=== PATIENT | male | born 1965 | race African-American/Black ===

== ENCOUNTER 2016-07-07 11:15 | Inpatient (IN) | payer OTHER ==
[2016-07-07] VITALS (10 sets, daily range): BP systolic 138–170; BP diastolic 73–92; PULSE 59–79; RESP 16–20; TEMP 97–98.4; O2SAT 97–100
[~2016-07-07] VITALS: Ht 170.2 cm; Wt 96.3 kg
--- NOTE | 2016-07-07 11:18 | PD ---
HPI Chief Complaint: anemia, GI bleed Time Seen by Provider: 11:18 Travel History International Travel<30 days: No Contact w/Intl Traveler<30days: No Traveled to known affect area: No History of Present Illness HPI 51-year-old male came to the emergency room sent from his primary care from [place] for a hemoglobin of 7. Patient says that he's been feeling weak for past 2 months. He went to get his blood checked today and was told that his hemoglobin was 7 and he needs blood transfusion. Hence he was sent to the emergency room. Patient has history of GI bleed a year ago when he required 6 units of blood transfusion along with iron. He has been taking iron at home. He noticed blood in his stool yesterday. No history of nausea vomiting. No history of abdominal pain. He says his weakness has been progressively worsening. Vital signs were stable. Patient drove himself to the emergency room. He otherwise does not appear to be in any significant distress. Patient says that the [place] I told him that he could come back after the transfusion and they will try to set him up with upper endoscopy and colonoscopy. [facility] Past Medical History Narrative Medical List of his past medical history is reviewed from the nursing note. Hx Anticoagulant Therapy: No Gastrointestinal Disorders: Yes (GI bleed requiring blood transfusion) Social History Tobacco Use: No Allergies-Medications (Allergen,Severity, Reaction): Coded Allergies: No Known Allergies (Unverified , 07/07/16) Comments No known drug allergies. Reported Meds & Prescriptions Reported Meds & Active Scripts Active Reported Iron (Ferrous Fumarate) 18 Mg Tab Mg PO BID Narrative Medication List of his home medications reviewed from the nursing note. Review of Systems Except as stated in HPI: all other systems reviewed are Neg Physical Exam Narrative GENERAL: Awake, alert, no obvious distress SKIN: Warm and dry. Pale HEAD: Atraumatic. Normocephalic. EYES: Pupils equal and round. No scleral icterus. No injection or drainage. Pallor ENT: No nasal bleeding or discharge. Mucous membranes pink and moist. NECK: Trachea midline. No JVD. CARDIOVASCULAR: Regular rate and rhythm. No murmur appreciated. RESPIRATORY: No accessory muscle use. Clear to auscultation. Breath sounds equal bilaterally. GASTROINTESTINAL: Abdomen soft, non-tender, nondistended. Hepatic and splenic margins not palpable. MUSCULOSKELETAL: No obvious deformities. No clubbing. No cyanosis. No edema. NEUROLOGICAL: Awake and alert. No obvious cranial nerve deficits. Motor grossly within normal limits. Normal speech. PSYCHIATRIC: Appropriate mood and affect; insight and judgment normal. Data Data Last Documented VS Vital Signs Date Time Temp Pulse Resp B/P Pulse Ox O2 Delivery O2 Flow Rate FiO2 07/07/16 11:33 98.4 78 20 170/86 98 Room Air Orders Complete Blood Count With Diff (07/07/16 11:31) Comprehensive Metabolic Panel (07/07/16 11:31) Prothrombin Time / Inr (Pt) (07/07/16 11:31) Type And Screen (07/07/16 11:31) Blood Product Administration .UPON TRANSFUSION (07/07/16 11:31) Ecg Monitoring (07/07/16 11:31) Iv Access Insert/Monitor (07/07/16 11:31) Oximetry (07/07/16 11:31) Red Blood Cells (Rbc) (07/07/16 11:31) Blood Product Administration .UPON TRANSFUSION (07/07/16 11:31) Admit Order (Ed Use Only) (07/07/16 12:40) Labs Laboratory Tests Test 07/07/16 11:41 White Blood Count 7.0 TH/MM3 Red Blood Count 2.83 MIL/MM3 Hemoglobin 6.7 GM/DL Hematocrit 20.7 % Mean Corpuscular Volume 73.1 FL Mean Corpuscular Hemoglobin 23.5 PG Mean Corpuscular Hemoglobin 32.1 % Concent Red Cell Distribution Width 23.0 % Platelet Count 330 TH/MM3 Mean Platelet Volume 7.1 FL Neutrophils (%) (Auto) 79.6 % Lymphocytes (%) (Auto) 9.2 % Monocytes (%) (Auto) 9.1 % Eosinophils (%) (Auto) 2.0 % Basophils (%) (Auto) 0.1 % Neutrophils # (Auto) 5.6 TH/MM3 Lymphocytes # (Auto) 0.6 TH/MM3 Monocytes # (Auto) 0.6 TH/MM3 Eosinophils # (Auto) 0.1 TH/MM3 Basophils # (Auto) 0.0 TH/MM3 CBC Comment AUTO DIFF Differential Comment AUTO DIFF CONFIRMED Prothrombin Time 10.7 SEC Prothromb Time International 1.0 RATIO Ratio Sodium Level 141 MEQ/L Potassium Level 4.2 MEQ/L Chloride Level 109 MEQ/L Carbon Dioxide Level 26.6 MEQ/L Anion Gap 5 MEQ/L Blood Urea Nitrogen 14 MG/DL Creatinine 1.04 MG/DL Estimat Glomerular Filtration 91 ML/MIN Rate Random Glucose 82 MG/DL Calcium Level 8.4 MG/DL Total Bilirubin 0.2 MG/DL Aspartate Amino Transf 17 U/L (AST/SGOT) Alanine Aminotransferase 17 U/L (ALT/SGPT) Alkaline Phosphatase 47 U/L Total Protein 7.1 GM/DL Albumin 3.4 GM/DL Blood Type O POSITIVE Antibody Screen NEGATIVE Crossmatch Leukocyte-Reduced Red Blood Cells Blood Bank Comment MDM Medical Decision Making Medical Screen Exam Complete: Yes Emergency Medical Condition: Yes Medical Record Reviewed: Yes Differential Diagnosis symptomatic anemia, upper GI bleed, lower GI bleed Narrative Course 1 PM blood test results are back. Hemoglobin here is 6.7 and hematocrit of 20. The bleeding has stopped further since this morning. I spoke with the patient and explained to him that it would be in his best interest to get admitted so that a repeat blood test can be done after the transfusion to see that his hemoglobin has sufficiently raised. Because if not he might require further transfusion. Also it would not be a bad idea to look into the source of the anemia and possible GI bleed during the admission. Patient is comfortable with that plan. Spoke with the resident for admission. Critical Care Narrative Aggregate critical care time was 30 minutes. Time to perform other separately billable procedures was not included in the critical care time. My time did not include minutes spent treating any other patients simultaneously or on activities that did not directly contribute to the patient's treatment. The services I provided to this patient were to treat and/or prevent clinically significant deterioration that could result in: Symptomatic anemia, blood transfusion, GI bleed by history I provided critical care services requiring my management, as noted below: Chart data review, documentation time, medication orders and management, vital sign assessments/reviewing monitor data, ordering and reviewing lab tests, ordering and interpreting/reviewing x-rays and diagnostic studies, care of the patient and discussion of the patient with the admitting physicians. HemaPrompt Point of Care Internal Pos. & Neg. Controls: Passed Fecal Specimen Occult Blood: Negative Comment There was no stool in the rectal vault Diagnosis Primary Impression: Symptomatic anemia Additional Impression: GI bleed Qualified Code: K92.2 - Gastrointestinal hemorrhage, unspecified gastrointestinal hemorrhage type Admitting Information Admitting Physician Requests: Admit Scripts Pantoprazole (Protonix)40 Mg Tab40 Mg PO DAILY #30 TAB Ref 0 Prov:Mahamed Blanco MD R1 07/08/16 Jeff Sharif MD Jul 07, 2016 11:18
[2016-07-07] MEDS ORDERED: IRON18TA2 PO (11:30)
[2016-07-07 12:09] LABS: AUTOMATED NEUTROPHIL # 5.6 TH/MM3 (1.8-7.7); BASOPHIL % 0.1 % (0.0-2.0); EOSINOPHIL # 0.1 TH/MM3 (0-0.4); LYMPH % 9.2 % (9.0-44.0); LYMPHOCYTE # 0.6 TH/MM3 (1.0-4.8); MEAN CELL VOLUME 73.1 FL (80.0-100.0); MEAN CORPUSCULAR HEMOGLOBIN 23.5 PG (27.0-34.0); MEAN CORPUSCULAR HGB CONC 32.1 % (32.0-36.0); MONO % 9.1 % (0.0-8.0); NEUT % 79.6 % (16.0-70.0); PLATELET COUNT 330 TH/MM3 (150-450); RED BLOOD COUNT 2.83 MIL/MM3 (4.50-5.90)
[2016-07-07 12:15] LABS: PROTHROMBIN TIME - PATIENT 10.7 SEC (9.8-11.6)
[2016-07-07 12:16] LABS: HEMO FLAGS AUTO DIFF
[2016-07-07 12:19] LABS: HEMATOCRIT 20.7 % (39.0-51.0)
[2016-07-07 12:26] LABS: ANION GAP 5 MEQ/L (5-15); AST (GOT) 17 U/L (15-37); BICARBONATE 26.6 MEQ/L (21.0-32.0); BLOOD UREA NITROGEN 14 MG/DL (7-18); CHLORIDE 109 MEQ/L (98-107); GLOMERULAR FILTRATION RATE 91 ML/MIN (>89); POTASSIUM 4.2 MEQ/L (3.5-5.1); SODIUM (NA) 141 MEQ/L (136-145)
[2016-07-07 12:30] LABS: ALKALINE PHOSPHATASE 47 U/L (45-117); ALT (GPT) 17 U/L (12-78); TOTAL BILIRUBIN ADULT 0.2 MG/DL (0.2-1.0)
[2016-07-07 12:47] LABS: SCAN/DIFF AUTO DIFF CONFIRMED
--- NOTE | 2016-07-07 13:19 | HHI.HP ---
[facility] Service Family Medicine Primary Care Physician [facility] Admission Diagnosis Symptomatic anemia, GI bleed Diagnoses: International Travel<30 Days: No Contact w/Intl Traveler<30days: No Known Affected Area: No History of Present Illness Patient is a 51-year-old man with a history of GI bleed a year ago who presents with a hemoglobin of 6.7. Patient was in his normal state of health until about a week ago when he noticed that he was having off and on dark red and bright red stools. Patient went to [facility] for follow-up appointment today. He had routine lab work done last week. He was called back in today because his hemoglobin went from 8 to 7. At the [place], they called evac for transfer to [place] for fluid, blood transfusion. Last year, at [facility], he was noted to have a hemoglobin of 4. He received 6 units of blood and multiple IV iron fusions. He had a colonoscopy at that time, was diagnosed with bleeding polyps, which they said they stopped. He followed up as instructed, and he has been on oral iron pills ever since. Patient endorses dizziness/lightheadedness with standing, dyspnea on exertion, fatigue. Patient denies any shortness of breath at rest, chest pain. Patient does endorse some back pain with concern for urinary tract infection. ( Mahamed Blanco MD R1) Review of Systems Constitutional: COMPLAINS OF: Fatigue (not sleeping well), Dizziness ( lightheaded with standing), Night Sweats, DENIES: Weight loss, Change in appetite Eyes: COMPLAINS OF: Blurred vision, DENIES: Diplopia, Vision loss, Double Vision Ears, nose, mouth, throat: COMPLAINS OF: Running Nose (about a week), DENIES: Throat pain Respiratory: DENIES: Shortness of breath Cardiovascular: COMPLAINS OF: Dyspnea on Exertion, DENIES: Chest pain Gastrointestinal: COMPLAINS OF: Black stools (dark red), Bloody stools (light red), DENIES: Abdominal pain, Constipation, Diarrhea (couple days ago), Nausea , Vomiting, Anorexia Genitourinary: DENIES: Dysuria Musculoskeletal: COMPLAINS OF: Back pain, DENIES: Joint pain, Muscle aches Integumentary: DENIES: Rash Hematologic/lymphatic: DENIES: Bruising Neurologic: DENIES: Headache (yesterday), Localized weakness, Paresthesias ( Mahamed Blanco MD R1) Past Family Social History Past Medical History bleeding polyps last year Past Surgical History 1991 - first colonoscopy for bloody stool [facility]. Reported Medications oral iron pills (Mahamed Blanco MD R1) Allergies: Coded Allergies: No Known Allergies (Unverified , 07/07/16) Family History Patient denies any FH of colon cancer or other cancer. FH of DM in mom, daughter. Patient reports that his dad had h/o GI bleed, of paralysis s/p spinal operation. 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 (Mahamed Blanco MD R1) Physical Exam Vital Signs Vital Signs Date Time Temp Pulse Resp B/P Pulse Ox O2 Delivery O2 Flow Rate FiO2 07/07/16 11:33 98.4 78 20 170/86 98 Room Air 07/07/16 11:19 98.4 79 20 170/86 99 Physical Exam GENERAL: This is a well-nourished, well-developed patient, in no apparent distress. SKIN: Delayed cap refill of 4-5 s. No rashes, ecchymoses or lesions. Cool and dry. HEAD: Atraumatic. Normocephalic. EYES: mild conjunctival pallor. soft tissue bulging in superior-lateral eyes, BL , R>L. Pupils equal round and reactive. Extraocular motions intact. No scleral icterus. No injection or drainage. ENT: Nose without bleeding, purulent drainage. Pale MM. Throat without erythema , tonsillar hypertrophy or exudate. Uvula midline. Airway patent. NECK: Trachea midline. No JVD or lymphadenopathy. Supple, nontender, no meningeal signs. CARDIOVASCULAR: Regular rate and rhythm without murmurs, gallops, or rubs. RESPIRATORY: Clear to auscultation. Breath sounds equal bilaterally. No wheezes , rales, or rhonchi. GASTROINTESTINAL: Abdomen soft, non-tender, nondistended. No guarding. MUSCULOSKELETAL: Extremities without clubbing, cyanosis, or edema. No joint tenderness, effusion, or edema noted. No calf tenderness. NEUROLOGICAL: Awake and alert. Cranial nerves II through XII grossly intact. Motor and sensory grossly within normal limits. Normal speech. Laboratory Laboratory Tests Test 07/07/16 11:41 White Blood Count 7.0 Red Blood Count 2.83 Hemoglobin 6.7 Hematocrit 20.7 Mean Corpuscular Volume 73.1 Mean Corpuscular Hemoglobin 23.5 Mean Corpuscular Hemoglobin 32.1 Concent Red Cell Distribution Width 23.0 Platelet Count 330 Mean Platelet Volume 7.1 Neutrophils (%) (Auto) 79.6 Lymphocytes (%) (Auto) 9.2 Monocytes (%) (Auto) 9.1 Eosinophils (%) (Auto) 2.0 Basophils (%) (Auto) 0.1 Neutrophils # (Auto) 5.6 Lymphocytes # (Auto) 0.6 Monocytes # (Auto) 0.6 Eosinophils # (Auto) 0.1 Basophils # (Auto) 0.0 CBC Comment AUTO DIFF Differential Comment AUTO DIFF CONFIRMED Prothrombin Time 10.7 Prothromb Time International 1.0 Ratio Sodium Level 141 Potassium Level 4.2 Chloride Level 109 Carbon Dioxide Level 26.6 Anion Gap 5 Blood Urea Nitrogen 14 Creatinine 1.04 Estimat Glomerular Filtration 91 Rate Random Glucose 82 Calcium Level 8.4 Total Bilirubin 0.2 Aspartate Amino Transf 17 (AST/SGOT) Alanine Aminotransferase 17 (ALT/SGPT) Alkaline Phosphatase 47 Total Protein 7.1 Albumin 3.4 Blood Type O POSITIVE Antibody Screen NEGATIVE Crossmatch Leukocyte-Reduced Red Blood Cells Blood Bank Comment (Mahamed Blanco MD R1) Result Diagram: 07/07/16 1141 07/07/16 1141 Course In the emergency department, patient had IV placed, type & screen, PT/INR, CMP, CBC, IV placed in preparation for PRBC transfusion. (Mahamed Blanco MD R1) Assessment and Plan Assessment and Plan Patient is a 51-year-old man with a history of GI bleed who presents with a week long history of dark red and bright red blood per rectum, a hemoglobin of 6.7, and signs and symptoms of anemia. Code Status Full code Discussed Condition With Patient seen and discussed with Dr. Candy Marino. Patient discussed with Dr. Zuluaga (Mahamed Blanco MD R1) Attending Attestation THIS CASE WAS DISCUSSED WITH THE RESIDENT PHYSICIANS. I HAVE REVIEWED THE RECORD AND AGREE WITH THE ABOVE NOTE AND PLAN OF CARE WAS DISCUSSED. I HAVE AUTHORIZED THE ORDER FOR ADMISSION TO AN IN-PATIENT STATUS. (Connor Zuluaga MD) Problem List: (1) GI bleed Status: Acute Plan: Patient is a 51-year-old man with a history of GI bleed who presents with a likely GI bleed. Heme occult in the ED negative. GI consult Stool Hemoccult Every 6 hours H&H Protonix 40 mg IV daily Normal saline IV at 125 mL per hour Nothing by mouth in preparation for GI intervention/procedure Monitor intake and output Monitor vital signs Admit to inpatient Type and screen Transfuse 2 units of PRBC --Continue home ferrous fumarate 325mg po bid when not NPO (2) Symptomatic anemia Status: Acute Plan: See assessment and plan above. (3) Contraindication to anticoagulation therapy Status: Acute Plan: Patient with reported history of bleeding per rectum. Anticoagulation contraindicated (4) Lipoma Status: Acute Plan: Patient with likely lipoma in superior lateral thigh bilaterally right greater than left, which is associated with hyperthyroidism TSH (5) Back pain Status: Acute Plan: Patient complaint back pain with concern for UTI. UA (6) Nutrition, metabolism, and development symptoms Status: Acute Plan: Fluids: Normal saline IV at 125 mL per hour Electrolytes: Monitor and replete as necessary Nutrition: Nothing by mouth GI prophylaxis: Protonix 40 mg IV daily (Mahamed Blanco MD R1) Physician Certification 2 Midnight Certification Type: Admission for Inpatient Services Order for Inpatient Services The services are ordered in accordance with Medicare regulations or non- Medicare payer requirements, as applicable. In the case of services not specified as inpatient-only, they are appropriately provided as inpatient services in accordance with the 2-midnight benchmark. Estimated LOS (days): 2 2 days is the estimated time the patient will need to remain in the hospital, assuming treatment plan goals are met and no additional complications. Post-Hospital Plan: Home (Mahamed Blanco MD R1) Problem Qualifiers (1) GI bleed: Qualified Code: K92.2 - Gastrointestinal hemorrhage, unspecified gastrointestinal hemorrhage type Mahamed Blanco MD R1 Jul 07, 2016 13:19 Connor Zuluaga MD Jul 07, 2016 15:23
[2016-07-07] MEDS ORDERED: SODIUM CHLORIDE 0.9% FLUSH 5 ML FLUSH IV PRN (13:30)
[2016-07-07] MEDS ORDERED: ONDANSETRON HCL 4 MG/2 ML VIAL IV PRN (13:30)
[2016-07-07] MEDS: SODIUM CHLOR 0.9% 1000 ML INJ 1,000 ML IV SCH (14:01)
[2016-07-07 14:29] LABS: BLOOD, URINE NEG (NEG); GLUCOSE,URINE NEG (NEG); KETONE, URINE NEG (NEG); MUCUS URINE FEW /lpf (OCC); NITRITE,URINE NEG (NEG); PH, URINE 5.5 (5.0-8.5); URINE COLOR YELLOW (YELLW/STRAW)
[2016-07-07 14:30] LABS: COMMENT (UR) CULT NOT INDICATED; CULTURE IF INDICATED CULT NOT INDICATED
--- NOTE | 2016-07-07 15:22 | HHI.HP ---
[facility] Service Family Medicine Primary Care Physician [facility] Admission Diagnosis Symptomatic anemia, GI bleed Diagnoses: (1) GI bleed (2) Symptomatic anemia (3) Contraindication to anticoagulation therapy (4) Lipoma (5) Back pain (6) Nutrition, metabolism, and development symptoms International Travel<30 Days: No Contact w/Intl Traveler<30days: No Known Affected Area: No History of Present Illness 51-year-old male presenting to the emergency department with anemia found on routine blood work. He states that over the last 2-3 weeks he has noticed several episodes of both black/melanotic stools as well as some bright red blood per rectum with bowel movements. He had blood work done at the [place] and was called and instructed to go to the emergency department for a hemoglobin of 7. Upon arrival to the emergency department his hemoglobin was 6.7. He endorses some orthostatic symptoms such as dizziness/lightheadedness. He does endorse some shortness of breath that is worse with minor activity. He denies symptoms such as chest pain or palpitation. He denies any nausea or vomiting. He denies any hematemesis. He denies anti-inflammatory use set for an occasional Tylenol. One year ago he was hospitalized at [facility] with a hemoglobin of 4. He received 6 units of PRBCs as well as multiple IV infusions. He states that he was worked up with a colonoscopy and EGD at that time and all that was found was some bleeding polyps. He did have follow-up with GI after that hospitalization and was never told of any other abnormalities. He was continued on iron supplementation, which is the only medication that he takes at this point. Review of Systems Constitutional: COMPLAINS OF: Fatigue, DENIES: Fever, Weight loss, Chills, Dizziness Eyes: DENIES: Blurred vision, Double Vision Ears, nose, mouth, throat: DENIES: Vertigo, Throat pain Respiratory: COMPLAINS OF: Shortness of breath, DENIES: Cough, Wheezing, Hemoptysis, Sputum production Cardiovascular: COMPLAINS OF: Dyspnea on Exertion, DENIES: Chest pain, Palpitations, Syncope Gastrointestinal: COMPLAINS OF: Black stools, Bloody stools, DENIES: Abdominal pain, Constipation, Diarrhea, Nausea, Vomiting Musculoskeletal: DENIES: Joint pain Past Family Social History Past Medical History bleeding polyps last year Past Surgical History 1991 - first colonoscopy for bloody stool Last colonoscopy last year at [facility]. Allergies: Coded Allergies: No Known Allergies (Unverified , 07/07/16) Family History Patient denies any FH of colon cancer or other cancer. FH of DM in mom, daughter. Patient reports that his dad had h/o GI bleed, of paralysis s/p spinal operation. 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 Physical Exam Vital Signs Vital Signs Date Time Temp Pulse Resp B/P Pulse Ox O2 Delivery O2 Flow Rate FiO2 07/07/16 14:58 98.3 61 20 158/81 99 Room Air 07/07/16 14:44 98.2 62 20 158/76 99 Room Air 07/07/16 13:00 75 18 155/75 100 Room Air 07/07/16 11:33 98.4 78 20 170/86 98 Room Air 07/07/16 11:19 98.4 79 20 170/86 99 Physical Exam GENERAL: This is a well-nourished, well-developed patient, in no apparent distress. SKIN: Delayed cap refill of 4-5 s. No rashes, ecchymoses or lesions. Cool and dry. EYES: mild conjunctival pallor. soft tissue bulging in superior-lateral eyes, BL , R>L. HENT: Nose without bleeding, purulent drainage. Pale MM. Throat without erythema , tonsillar hypertrophy or exudate. Uvula midline. Airway patent. CARDIOVASCULAR: Regular rate and rhythm with 2/6 systolic murmur. RESPIRATORY: Clear to auscultation. Breath sounds equal bilaterally. No wheezes , rales, or rhonchi. GASTROINTESTINAL: Abdomen soft, non-tender, nondistended. No guarding. MUSCULOSKELETAL: Extremities without clubbing, cyanosis, or edema. NEUROLOGICAL: Awake and alert. Laboratory Laboratory Tests Test 07/07/16 07/07/16 07/07/16 11:41 13:05 14:00 White Blood Count 7.0 Red Blood Count 2.83 Hemoglobin 6.7 Hematocrit 20.7 Mean Corpuscular Volume 73.1 Mean Corpuscular Hemoglobin 23.5 Mean Corpuscular Hemoglobin 32.1 Concent Red Cell Distribution Width 23.0 Platelet Count 330 Mean Platelet Volume 7.1 Neutrophils (%) (Auto) 79.6 Lymphocytes (%) (Auto) 9.2 Monocytes (%) (Auto) 9.1 Eosinophils (%) (Auto) 2.0 Basophils (%) (Auto) 0.1 Neutrophils # (Auto) 5.6 Lymphocytes # (Auto) 0.6 Monocytes # (Auto) 0.6 Eosinophils # (Auto) 0.1 Basophils # (Auto) 0.0 CBC Comment AUTO DIFF Differential Comment AUTO DIFF CONFIRMED Prothrombin Time 10.7 Prothromb Time International 1.0 Ratio Sodium Level 141 Potassium Level 4.2 Chloride Level 109 Carbon Dioxide Level 26.6 Anion Gap 5 Blood Urea Nitrogen 14 Creatinine 1.04 Estimat Glomerular Filtration 91 Rate Random Glucose 82 Calcium Level 8.4 Total Bilirubin 0.2 Aspartate Amino Transf 17 (AST/SGOT) Alanine Aminotransferase 17 (ALT/SGPT) Alkaline Phosphatase 47 Total Protein 7.1 Albumin 3.4 Blood Type O POSITIVE O POSITIVE Antibody Screen NEGATIVE Crossmatch Leukocyte-Reduced Red Blood Cells Blood Bank Comment Urine Color YELLOW Urine Turbidity CLEAR Urine pH 5.5 Urine Specific [place] 1.019 Urine Protein NEG Urine Glucose (UA) NEG Urine Ketones NEG Urine Occult Blood NEG Urine Nitrite NEG Urine Bilirubin NEG Urine Urobilinogen LESS THAN 2.0 Urine Leukocyte Esterase NEG Urine RBC LESS THAN 1 Urine WBC LESS THAN 1 Urine Mucus FEW Microscopic Urinalysis Comment CULT NOT INDICATED Result Diagram: 07/07/16 1141 07/07/16 1141 Assessment and Plan Assessment and Plan 51-year-old male presenting to the emergency department with anemia and a GI bleed Problem List: (1) GI bleed Status: Acute Plan: Melanotic stools with occasional bright red blood per rectum, likely due to lower GI bleed Hemoccult in the emergency department performed and was negative Hemoglobin 6.7 on arrival - 2 units PRBCs ordered, patient was typed and screened Monitor H&H every 6 hours and transfuse as necessary Protonic 40 mg IV to 24 IV fluids with normal saline at 125 mL per hour once transfusion is complete GI consulted for likely panendoscopy Nothing by mouth in preparation for possible procedure Continue home ferrous fumarate 325mg po bid when not NPO (2) Symptomatic anemia Status: Acute Plan: See assessment and plan above. (3) Contraindication to anticoagulation therapy Status: Acute Plan: Patient with reported history of bleeding per rectum. Anticoagulation contraindicated (4) Lipoma Status: Acute Plan: Patient with likely lipoma in superior lateral thigh bilaterally right greater than left, which is associated with hyperthyroidism TSH (5) Back pain Status: Acute Plan: Patient complaint back pain with concern for UTI. UA (6) Nutrition, metabolism, and development symptoms Status: Acute Plan: Fluids: Normal saline IV at 125 mL per hour Electrolytes: Monitor and replete as necessary Nutrition: Nothing by mouth GI prophylaxis: Protonix 40 mg IV daily Physician Certification 2 Midnight Certification Type: Admission for Inpatient Services Order for Inpatient Services The services are ordered in accordance with Medicare regulations or non- Medicare payer requirements, as applicable. In the case of services not specified as inpatient-only, they are appropriately provided as inpatient services in accordance with the 2-midnight benchmark. Estimated LOS (days): 2 2 days is the estimated time the patient will need to remain in the hospital, assuming treatment plan goals are met and no additional complications. Post-Hospital Plan: Home Problem Qualifiers (1) GI bleed: Qualified Code: K92.2 - Gastrointestinal hemorrhage, unspecified gastrointestinal hemorrhage type Connor Zuluaga MD Jul 07, 2016 15:22
--- NOTE | 2016-07-07 16:35 | PD.CONS ---
HPI History of Present Illness This is a 51 year old who was sent to the ER for evaluation of anemia after he was found to have a anemia on his outpatient labs. He has been having intermittent blood in his stool since he required a blood transfusion for GI bleeding last year. He was hospitalized last year for this at [facility] and he was evaluated with EGD/Colonoscopy, and according to the patient, polyps were found. The patient reports that he was told that his bleeding was coming from his polyps. He reports that he has continued to have some blood in his stool. Sometimes his stool is dark and tarry and other times he sees red blood mixed within his stool. There are no aggravating or alleviating factors. He does get heartburn and acid reflux if he eats red sauces but states that he does okay as long as he avoids these. He denies any nausea or vomiting, abdominal pain, or weight loss. He does take ibuprofen as needed, usually a couple a week. He does drink ETOH on weekends, unable to quantify. He denies any family hx of esophageal, gastric, or colorectal cancer. (Pat Reed) PFSH Past Medical History GI Bleeding, pt reports secondary to bleeding polyps Colon polyps Anemia Past Surgical History EGD/Colonoscopy ORIF to left tib/fib, ankle (Pat Reed) Coded Allergies: No Known Allergies (Unverified , 07/07/16) Medications Allergies Coded Allergies Type Severity Reaction Last Updated Verified No Known Allergies 07/07/16 No Active Scripts Medications Dose Route/Sig Days Date Category Iron (Ferrous Fumarate) 18 Mg Tab Mg PO BID 07/07/16 Reported Family History No esophageal, gastric, or colorectal cancer. Social History No tobacco. Social drinker (Pat Reed) Review of Systems Constitutional: COMPLAINS OF: Fatigue, DENIES: Weight loss, Change in appetite Respiratory: COMPLAINS OF: Shortness of breath (prolonged walkign or going up stairs), DENIES: Cough Cardiovascular: DENIES: Chest pain Gastrointestinal: COMPLAINS OF: Black stools, Bloody stools, Heartburn, DENIES : Abdominal pain, Constipation, Diarrhea, Nausea, Vomiting, Swelling of Abdomen , Hematemesis Musculoskeletal: DENIES: Joint pain Integumentary: DENIES: Abnormal pigmentation Hematologic/lymphatic: DENIES: Bruising Neurologic: DENIES: Abnormal gait Psychiatric: DENIES: Confusion (Pat Reed FRANCIS) GI Exam Vitals I&O Vital Signs Date Time Temp Pulse Resp B/P Pulse Ox O2 Delivery O2 Flow Rate FiO2 07/07/16 15:28 98.2 62 20 161/88 98 Room Air 07/07/16 14:58 98.3 61 20 158/81 99 Room Air 07/07/16 14:44 98.2 62 20 158/76 99 Room Air 07/07/16 13:00 75 18 155/75 100 Room Air 07/07/16 11:33 98.4 78 20 170/86 98 Room Air 07/07/16 11:19 98.4 79 20 170/86 99 Laboratory Test 07/07/16 07/07/16 07/07/16 11:41 13:05 14:00 White Blood Count 7.0 TH/MM3 Red Blood Count 2.83 MIL/MM3 Hemoglobin 6.7 GM/DL Hematocrit 20.7 % Mean Corpuscular Volume 73.1 FL Mean Corpuscular Hemoglobin 23.5 PG Mean Corpuscular Hemoglobin 32.1 % Concent Red Cell Distribution Width 23.0 % Platelet Count 330 TH/MM3 Mean Platelet Volume 7.1 FL Neutrophils (%) (Auto) 79.6 % Lymphocytes (%) (Auto) 9.2 % Monocytes (%) (Auto) 9.1 % Eosinophils (%) (Auto) 2.0 % Basophils (%) (Auto) 0.1 % Neutrophils # (Auto) 5.6 TH/MM3 Lymphocytes # (Auto) 0.6 TH/MM3 Monocytes # (Auto) 0.6 TH/MM3 Eosinophils # (Auto) 0.1 TH/MM3 Basophils # (Auto) 0.0 TH/MM3 CBC Comment AUTO DIFF Differential Comment AUTO DIFF CONFIRMED Prothrombin Time 10.7 SEC Prothromb Time International 1.0 RATIO Ratio Sodium Level 141 MEQ/L Potassium Level 4.2 MEQ/L Chloride Level 109 MEQ/L Carbon Dioxide Level 26.6 MEQ/L Anion Gap 5 MEQ/L Blood Urea Nitrogen 14 MG/DL Creatinine 1.04 MG/DL Estimat Glomerular Filtration 91 ML/MIN Rate Random Glucose 82 MG/DL Calcium Level 8.4 MG/DL Total Bilirubin 0.2 MG/DL Aspartate Amino Transf 17 U/L (AST/SGOT) Alanine Aminotransferase 17 U/L (ALT/SGPT) Alkaline Phosphatase 47 U/L Total Protein 7.1 GM/DL Albumin 3.4 GM/DL Blood Type O POSITIVE O POSITIVE Antibody Screen NEGATIVE Crossmatch Leukocyte-Reduced Red Blood Cells Blood Bank Comment Urine Color YELLOW Urine Turbidity CLEAR Urine pH 5.5 Urine Specific [place] 1.019 Urine Protein NEG mg/dL Urine Glucose (UA) NEG mg/dL Urine Ketones NEG mg/dL Urine Occult Blood NEG Urine Nitrite NEG Urine Bilirubin NEG Urine Urobilinogen LESS THAN 2.0 MG/DL Urine Leukocyte Esterase NEG Urine RBC LESS THAN 1 /hpf Urine WBC LESS THAN 1 /hpf Urine Mucus FEW /lpf Microscopic Urinalysis Comment CULT NOT INDICATED Physical Examination HEENT: Normocephalic; atraumatic; no jaundice. Throat is clear. NECK: Neck is supple, no JVD, no lymphadenopathy. CHEST: CTA CARDIAC: RRR ABDOMEN: Soft, nondistended, nontender; no hepatosplenomegaly; bowel sounds are present in all four quadrants. EXTREMITIES: No clubbing, cyanosis, or edema. SKIN: Normal; no rash; no jaundice. FORESTRY FIRE AIDE: No focal deficits; alert and oriented times three. (Pat Reed) Assessment and Plan Plan ASSESSMENT: - GIB with melena and hematochezia. Pt was hospitalized for GI bleeding 1 year ago at [facility] and reports that he was evaluated with EGD/Colonoscopy at that time and told that his bleeding was from his bleeding polyps. He has continued to have intermittent bleeding with both dark stool and red blood in his stool. He recently had labs done as outpatient and was found to be anemic and referred to the ER. He is not having any n/v/pain. He does take ibuprofen a few times a week and drinks ETOH on the weekends. Clear liquids. PPI. Schedule for egd/colonoscopy in am. Will try to obtain records from [facility]. - Anemia secondary to blood loss. H/H 6.7/20.7, Microcytic/hypochromic. #1/2 PRBC given. - GERD. PPI - Hx polyps PLAN: - Plan for egd/colonoscopy in am - Obtain consents - Clear liquids - NPO after MN - PPI - Monitor HH - Transfuse as necessary - Supportive care - Further recommendations to follow based on results of above - PT seen and examined by Dr. Kaplan and myself and this note is written on his behalf (Pat Reed) Physician Comments Seen and examined with Ms. Brianna BLANCO, egd/colonoscopy planned for tomorrow. Monitor H/H. Ko follow. Thank you (Otto Kaplan MD) Pat Reed Jul 07, 2016 16:35 Otto Kaplan MD Jul 07, 2016 18:29
[2016-07-07] MEDS ORDERED: PEG (High)/E-LYTE SOLN 4000 ML BTL PO ONE (17:00)
[2016-07-07] MEDS: SODIUM CHLORIDE 0.9% FLUSH 5 ML FLUSH IV SCH (20:10)
[2016-07-07 21:46] LABS: HEMATOCRIT 30.5 % (39.0-51.0)
[2016-07-07 21:47] LABS: REVIEW FLAG FINAL
[2016-07-08] MEDS: SODIUM CHLOR 0.9% 1000 ML INJ 1,000 ML IV SCH ×3 (00:44→13:25)
[2016-07-08 03:29] LABS: AUTOMATED NEUTROPHIL # 4.9 TH/MM3 (1.8-7.7); BASOPHIL # 0.1 TH/MM3 (0-0.2); BASOPHIL % 0.8 % (0.0-2.0); EOSINOPHIL # 0.1 TH/MM3 (0-0.4); EOSINOPHIL % 2.1 % (0.0-4.0); HEMATOCRIT 26.2 % (39.0-51.0); LYMPH % 9.3 % (9.0-44.0); LYMPHOCYTE # 0.6 TH/MM3 (1.0-4.8); MEAN CELL VOLUME 75.4 FL (80.0-100.0); MEAN CORPUSCULAR HEMOGLOBIN 24.5 PG (27.0-34.0); MEAN CORPUSCULAR HGB CONC 32.5 % (32.0-36.0); MONO % 9.7 % (0.0-8.0); NEUT % 78.1 % (16.0-70.0); PLATELET COUNT 317 TH/MM3 (150-450); RED BLOOD COUNT 3.48 MIL/MM3 (4.50-5.90); RED CELL DISTRIBUTION WIDTH 22.1 % (11.6-17.2); WHITE BLOOD COUNT 6.2 TH/MM3 (4.0-11.0)
[2016-07-08 03:30] LABS: HEMO FLAGS AUTO DIFF
[2016-07-08 03:45] LABS: BICARBONATE 24.5 MEQ/L (21.0-32.0); POTASSIUM 3.9 MEQ/L (3.5-5.1)
[2016-07-08 04:00] VITALS: BP 119/66; PULSE 70; RESP 18; TEMP 97.5; O2SAT 98
[2016-07-08 05:03] LABS: PLATELET ESTIMATE SMEAR NORMAL (NORMAL); PLATELET MORPHOLOGY NORMAL (NORMAL); SCAN/DIFF AUTO DIFF CONFIRMED
[2016-07-08 05:04] LABS: OVALOCYTES 1+ (NORMAL)
[2016-07-08 08:00] VITALS: BP 145/81; PULSE 88; RESP 16; TEMP 98.7; O2SAT 99
[2016-07-08 08:13] LABS: HEMATOCRIT 29.7 % (39.0-51.0)
[2016-07-08 08:21] LABS: REVIEW FLAG FINAL
[2016-07-08] MEDS ORDERED: FERROUS FUMARATE 325 MG TAB (106 MG ELEMENTAL IRON) PO SCH (09:00)
[2016-07-08] MEDS: SODIUM CHLORIDE 0.9% FLUSH 5 ML FLUSH IV SCH (09:00)
[2016-07-08] MEDS ORDERED: PANTOPRAZOLE SODIUM 40 MG VIAL IV SCH (09:00)
--- NOTE | 2016-07-08 10:30 | HHI.FPPN ---
Subjective Remarks No acute events overnight. Vital signs have remained stable. Patient denies any episodes of hematemesis, melena, or hematochezia. He states he has completed his bowl prep and BM's are "clear." He is scheduled to undergo EGD and colonoscopy today at noon. He denies abdominal pain, cramping, chest pain, SOB, fevers, or calf pain. He states he is hungry. (Wilian Meza MD R3) Objective Vitals Vital Signs Date Time Temp Pulse Resp B/P Pulse Ox O2 Delivery O2 Flow Rate FiO2 07/08/16 08:00 98.7 88 16 145/81 99 07/08/16 04:00 97.5 70 18 119/66 98 07/07/16 23:29 97.8 74 16 138/73 98 07/07/16 20:00 97.6 74 18 145/92 100 07/07/16 18:00 97.0 67 18 163/90 97 07/07/16 17:05 98.4 59 20 164/92 99 Room Air 07/07/16 15:28 98.2 62 20 161/88 98 Room Air 07/07/16 14:58 98.3 61 20 158/81 99 Room Air 07/07/16 14:44 98.2 62 20 158/76 99 Room Air 07/07/16 13:00 75 18 155/75 100 Room Air 07/07/16 11:33 98.4 78 20 170/86 98 Room Air 07/07/16 11:19 98.4 79 20 170/86 99 I/O 07/07/16 07/07/16 07/07/16 07/08/16 07/08/16 07/08/16 07:00 15:00 23:00 07:00 15:00 23:00 Intake Total 2600 ml 0 ml Output Total 1200 ml 650 ml Balance 1400 ml -650 ml Intake Oral 2600 ml 0 ml Output Urine Total 1200 ml 650 ml # Bowel Movements 6 1 (Wilian Meza MD R3) Result Diagram: 07/08/16 0745 07/08/16 0312 Objective Remarks GENERAL: This is a well-nourished, well-developed patient, in no apparent distress. SKIN: No rashes, ecchymoses or lesions. Cool and dry. Less pale than prior exam. EYES: clear bilaterally without injection or drainage. EOMI. CARDIOVASCULAR: Regular rate and rhythm with 1/6 systolic murmur. RESPIRATORY: Clear to auscultation. Breath sounds equal bilaterally. No wheezes , rales, or rhonchi. GASTROINTESTINAL: Abdomen soft, non-tender, nondistended. No guarding. MUSCULOSKELETAL: Extremities without clubbing, cyanosis, or edema. NEUROLOGICAL: Awake and alert. (Wilian Meza MD R3) A/P Assessment and Plan 51-year-old male admitted due to symptomatic anemia and suspected GI bleed Discharge Planning Pending GI evaluation and overall stabilization of clinical condition, likely discharge in 1-3 days. (Wilian Meza MD R3) Attending Attestation Patient examined and case discussed with resident physicians I have read the above note and agree with the assessment/plan as discussed with me I was involved in all medical decision making for this patient GI has signed off on patient after colonoscopy/EGD Recommend follow-up with GI as outpatient for small bowel follow-through Continue PPI Connor Zuluaga M.D. (Connor Zuluaga MD) Problem List: (1) GI bleed Status: Acute Plan: Melanotic stools with occasional bright red blood per rectum, likely due to lower GI bleed. Hemoccult in the emergency department performed and was negative. Hemoglobin 6.7 on arrival, now s/p 2 units PRBCs. Hgb this am 9.6. Will proceed with following plan: - GI following, Dr. Chowdhury-- thank you for rec's - Panendoscopy this AM - Continue Protonix 40mg IV daily - Monitor H&H's - Transfuse as necessary - Continue INK BLENDER fumarate 325mg po bid when not NPO (2) Symptomatic anemia Status: Acute Plan: See assessment and plan above. (3) Contraindication to anticoagulation therapy Status: Acute Plan: Patient with reported history of bleeding per rectum. Anticoagulation contraindicated (4) Lipoma Status: Acute Plan: Patient with likely lipoma in superior lateral thigh bilaterally right greater than left, which is associated with hyperthyroidism TSH wnl (5) Back pain Status: Acute Plan: Improved. Patient initially reported back pain with concern for UTI. U/A reassuring (6) Nutrition, metabolism, and development symptoms Status: Acute Plan: Fluids: Normal saline IV at 125 mL per hour Electrolytes: Monitor and replete as necessary Nutrition: Nothing by mouth GI prophylaxis: Protonix as above (Wilian Meza MD R3) Problem Qualifiers (1) GI bleed: Qualified Code: K92.2 - Gastrointestinal hemorrhage, unspecified gastrointestinal hemorrhage type Wilian Meza MD R3 Jul 08, 2016 10:30 Connor Zuluaga MD Jul 08, 2016 15:23
[2016-07-08 12:00] VITALS: BP 149/77; PULSE 70; RESP 16; TEMP 97.9; O2SAT 100
[2016-07-08 12:50] VITALS: BP 149/77; PULSE 70; RESP 15; TEMP 97.9; O2SAT 100
[2016-07-08] MEDS ORDERED: PROPOFOL 200 MG/20 ML AMP IV ONE (14:14)
[2016-07-08 16:00] VITALS: BP 150/91; PULSE 70; RESP 16; TEMP 97.7; O2SAT 100
--- NOTE | 2016-07-08 16:28 | HHI.DCPOC ---
Discharge Care Plan Diagnosis: (1) GI bleed (2) Symptomatic anemia Goals to Promote Your Health * To prevent worsening of your condition and complications, please follow-up with your doctors as instructed and take medications as prescribed. * To maintain your health at the optimal level, please follow-up with GI. Directions to Meet Your Goals Take your medications as prescribed Follow your dietary instruction Follow activity as directed Keep your appointments as scheduled Take your immunizations and boosters as scheduled If your symptoms worsen call your PCP, if no PCP go to Urgent Care Center or Emergency Room Smoking is Dangerous to Your Health. Avoid second hand smoke Call the 24-hour hour crisis hotline for domestic abuse at Mahamed Blanco MD R1 Jul 08, 2016 16:28
[2016-07-08] MEDS ORDERED: PROT40TA PO (17:05)
--- NOTE | 2016-07-09 13:03 | EKG ---
Date Performed: 07/08/2016 Time Performed: 13:37:33 PTAGE: 51 years EKG: SINUS BRADYCARDIA BORDERLINE ECG NO PREVIOUS TRACING DOCTOR: Dariel Rodriguez Interpretating Date/Time 07/09/2016 12:59:14
== END 2016-07-08 18:10 | disposition home or self-care (01) | DRG 379 ==
LOC: NEPE 11:15 → NEDA 12:42 → HOCA 18:00
PROVIDERS: ADMIT Family Medicine; ATTEND Family Medicine
PROC: 30233N1 Transfusion of Nonautologous Red Blood Cells into Peripheral Vein, Percutaneous Approach (ICD-10-PCS; 2016-07-07)
PROC: 0DJ08ZZ Inspection of Upper Intestinal Tract, Via Natural or Artificial Opening Endoscopic (ICD-10-PCS; principal; 2016-07-08 14:00)
PROC: 0DJD8ZZ Inspection of Lower Intestinal Tract, Via Natural or Artificial Opening Endoscopic (ICD-10-PCS; 2016-07-08 14:00)
DX: K92.2 Gastrointestinal hemorrhage, unspecified (principal); D17.9 Benign lipomatous neoplasm, unspecified; D50.0 Iron deficiency anemia secondary to blood loss (chronic); E05.90 Thyrotoxicosis, unspecified without thyrotoxic crisis or storm; M54.9 Dorsalgia, unspecified; Z86.010 Personal history of colon polyps; K29.70 Gastritis, unspecified, without bleeding; K57.30 Diverticulosis of large intestine without perforation or abscess without bleeding; K64.8 Other hemorrhoids; K64.4 Residual hemorrhoidal skin tags; K21.9 Gastro-esophageal reflux disease without esophagitis
CPT/HCPCS: 36430; 80048; 80053; 81001; 84443; 85014; 85018; 85025; 85610; 86850; 86900; 86901; 86920; 93005; 99291; C9113; J7030; P9016

== ENCOUNTER 2016-12-03 16:25 | Inpatient (IN) | payer OTHER ==
[2016-12-03] VITALS (11 sets, daily range): BP systolic 119–154; BP diastolic 64–93; PULSE 57–97; RESP 14–20; TEMP 97.6–98.5; O2SAT 98–100
[~2016-12-03] VITALS: Ht 170.2 cm; Wt 100.8 kg
[~2016-12-03 16:25] MED LIST: IRON18TA2 PO; PROT40TA PO
[2016-12-03] MEDS ORDERED: SODIUM CHLORIDE 0.9% FLUSH 10 ML FLUSH IVF PRN (16:45)
[2016-12-03] MEDS ORDERED: PANTOPRAZOLE SODIUM 40 MG VIAL IVP ONE (16:45)
[2016-12-03 16:46] LABS: MEAN CORPUSCULAR HGB CONC 28.4 % (32.0-36.0)
--- NOTE | 2016-12-03 16:50 | PD ---
HPI Chief Complaint: Abnormal Results Time Seen by Provider: 16:47 Travel History International Travel<30 days: No Contact w/Intl Traveler<30days: No Traveled to known affect area: No History of Present Illness HPI 51 year old male presents to the emergency department for evaluation of low hgb. According to the patient, he was told to come to the ED by the [facility] for Hgb of 5. Patient reports history of anemia in June when he was admitted. He states he had endoscopy and colonoscopy at that time, which did not show anything. Patient reports bright red blood per the rectum intermittently over several months. Patient states his Hgb has been running between 7 and 8. He denies any symptoms. No chest pressures breath. No abdominal pain. No nausea , vomiting, diarrhea. She states that he has not drank alcohol for the past couple of months. He was only drinking on the weekends prior to this. [facility] Past Medical History Hx Anticoagulant Therapy: No Anemia: Yes Diabetes: No Gastrointestinal Disorders: Yes (GI bleed requiring blood transfusion) Psychiatric: Yes (PTSD) Social History Alcohol Use: Yes Tobacco Use: No Substance Use: No Allergies-Medications (Allergen,Severity, Reaction): Coded Allergies: No Known Allergies (Unverified , 07/07/16) Reported Meds & Prescriptions Reported Meds & Active Scripts Active Protonix (Pantoprazole Sodium) 40 Mg Tab 40 Mg PO DAILY Reported Iron (Ferrous Fumarate) 18 Mg Tab Mg PO BID Review of Systems Except as stated in HPI: all other systems reviewed are Neg Physical Exam Narrative GENERAL: Well-nourished, well-developed male patient, afebrile. SKIN: Focused skin assessment warm/dry. HEAD: Normocephalic. Atraumatic. EYES: No scleral icterus. No injection or drainage. NECK: Supple, trachea midline. No JVD or lymphadenopathy. CARDIOVASCULAR: Regular rate and rhythm without murmurs, gallops, or rubs. RESPIRATORY: Breath sounds equal bilaterally. No accessory muscle use. Lungs sounds are clear to auscultation. GASTROINTESTINAL: Abdomen soft, non-tender, nondistended. MUSCULOSKELETAL: No cyanosis, or edema. RECTAL EXAM: No masses or tenderness, stool is brown. Hemoccult is positive. This exam was done with the nurse at bedside. Data Data Last Documented VS Vital Signs Date Time Temp Pulse Resp B/P Pulse Ox O2 Delivery O2 Flow Rate FiO2 12/03/16 16:46 16 100 Room Air 12/03/16 16:37 98.3 84 138/78 Orders Complete Blood Count With Diff (12/03/16 16:45) Comprehensive Metabolic Panel (12/03/16 16:45) Prothrombin Time / Inr (Pt) (12/03/16 16:45) Act Partial Throm Time (Ptt) (12/03/16 16:45) Type And Screen (12/03/16 16:45) Ecg Monitoring (12/03/16 16:45) Iv Access Insert/Monitor (12/03/16 16:45) Oximetry (12/03/16 16:45) Pantoprazole Inj (Protonix Inj) (12/03/16 16:45) Sodium Chloride 0.9% Flush (Ns Flush) (12/03/16 16:45) Red Blood Cells (Rbc) (12/03/16 17:26) Blood Product Administration .UPON TRANSFUSION (12/03/16 17:26) Sodium Chlor 0.9% 250 Ml Inj (Ns 250 Ml (12/03/16 17:30) Labs Laboratory Tests Test 12/03/16 16:53 White Blood Count 6.8 TH/MM3 Red Blood Count 3.17 MIL/MM3 Hemoglobin 5.5 GM/DL Hematocrit 19.3 % Mean Corpuscular Volume 60.7 FL Mean Corpuscular Hemoglobin 17.3 PG Mean Corpuscular Hemoglobin 28.4 % Concent Red Cell Distribution Width 21.1 % Platelet Count 397 TH/MM3 Mean Platelet Volume 7.7 FL Neutrophils (%) (Auto) 75.6 % Lymphocytes (%) (Auto) 12.1 % Monocytes (%) (Auto) 8.5 % Eosinophils (%) (Auto) 2.4 % Basophils (%) (Auto) 1.4 % Neutrophils # (Auto) 5.2 TH/MM3 Lymphocytes # (Auto) 0.8 TH/MM3 Monocytes # (Auto) 0.6 TH/MM3 Eosinophils # (Auto) 0.2 TH/MM3 Basophils # (Auto) 0.1 TH/MM3 CBC Comment DIFF FINAL Differential Comment Prothrombin Time 10.2 SEC Prothromb Time International 0.9 RATIO Ratio Activated Partial 25.6 SEC Thromboplast Time Sodium Level 141 MEQ/L Potassium Level 3.9 MEQ/L Chloride Level 109 MEQ/L Carbon Dioxide Level 26.4 MEQ/L Anion Gap 6 MEQ/L Blood Urea Nitrogen 14 MG/DL Creatinine 1.07 MG/DL Estimat Glomerular Filtration 88 ML/MIN Rate Random Glucose 96 MG/DL Calcium Level 8.5 MG/DL Total Bilirubin 0.3 MG/DL Aspartate Amino Transf 10 U/L (AST/SGOT) Alanine Aminotransferase 16 U/L (ALT/SGPT) Alkaline Phosphatase 49 U/L Total Protein 7.3 GM/DL Albumin 3.4 GM/DL Blood Type O POSITIVE MDM Medical Decision Making Medical Screen Exam Complete: Yes Emergency Medical Condition: Yes Medical Record Reviewed: Yes Differential Diagnosis Anemia versus upper GI bleed versus lower GI bleed Narrative Course 51-year-old male presents to the emergency department for evaluation hemoglobin of 5, sent by the [facility]. Patient is on exam. CBC, CMP, PTT, PTT/INR, type and screen are ordered and pending. Patient is given Protonix 40 mg IV. CBC shows hemoglobin 5.5, hematocrit 19.3. CMP shows no acute abnormality. Coags are unremarkable. 2 units of packed red blood cells are ordered. [facility] is paged for admission. Dr. Paige accepted admission. Diagnosis Primary Impression: GI bleed Qualified Code: K92.2 - Gastrointestinal hemorrhage, unspecified gastrointestinal hemorrhage type Additional Impression: Anemia Qualified Code: D64.9 - Anemia, unspecified type Admitting Information Admitting Physician Requests: Admit Kena Gutiérrez Dec 03, 2016 16:50
[2016-12-03 17:17] LABS: AUTOMATED NEUTROPHIL # 5.2 TH/MM3 (1.8-7.7); BASOPHIL # 0.1 TH/MM3 (0-0.2); BASOPHIL % 1.4 % (0.0-2.0); EOSINOPHIL # 0.2 TH/MM3 (0-0.4); EOSINOPHIL % 2.4 % (0.0-4.0); LYMPH % 12.1 % (9.0-44.0); LYMPHOCYTE # 0.8 TH/MM3 (1.0-4.8); MEAN CELL VOLUME 60.7 FL (80.0-100.0); MEAN CORPUSCULAR HEMOGLOBIN 17.3 PG (27.0-34.0); MONO % 8.5 % (0.0-8.0); NEUT % 75.6 % (16.0-70.0); PLATELET COUNT 397 TH/MM3 (150-450); RED BLOOD COUNT 3.17 MIL/MM3 (4.50-5.90); RED CELL DISTRIBUTION WIDTH 21.1 % (11.6-17.2); WHITE BLOOD COUNT 6.8 TH/MM3 (4.0-11.0)
[2016-12-03 17:25] LABS: HEMO FLAGS DIFF FINAL
[2016-12-03 17:26] LABS: HEMATOCRIT 19.3 % (39.0-51.0)
[2016-12-03 17:30] LABS: ALT (GPT) 16 U/L (12-78); ANION GAP 6 MEQ/L (5-15); APTT (PATIENT) 25.6 SEC (24.3-30.1); AST (GOT) 10 U/L (15-37); BICARBONATE 26.4 MEQ/L (21.0-32.0); BLOOD UREA NITROGEN 14 MG/DL (7-18); CHLORIDE 109 MEQ/L (98-107); GLOMERULAR FILTRATION RATE 88 ML/MIN (>89); INTERNATIONAL NORMALIZED RATIO 0.9 RATIO; POTASSIUM 3.9 MEQ/L (3.5-5.1); PROTHROMBIN TIME - PATIENT 10.2 SEC (9.8-11.6); SODIUM (NA) 141 MEQ/L (136-145)
[2016-12-03] MEDS ORDERED: SODIUM CHLOR 0.9% 250 ML INJ 250 ML IV ONE (17:30)
[2016-12-03 17:32] LABS: ALKALINE PHOSPHATASE 49 U/L (45-117); TOTAL BILIRUBIN ADULT 0.3 MG/DL (0.2-1.0)
--- NOTE | 2016-12-03 18:29 | HHI.HP ---
HPI Service [facility] [address] Hospitalists Primary Care Physician [facility] Admission Diagnosis anemia, GI bleed Diagnoses: Chief Complaint: anemia Travel History International Travel<30 Days: No Contact w/Intl Traveler <30 Da: No Traveled to Known Affected Are: No History of Present Illness 51-year-old male with history of iron deficient anemia requiring transfusions, presents after routine outpatient labs at the OR revealed hemoglobin of 5.2 today. Patient reports he was first diagnosed with anemia two years ago requiring blood transfusion, underwent EGD/colonoscopy that was unremarkable. He then had another hospitalization here at [facility] in June 2016, underwent EGD/colonoscopy that revealed gastritis, diverticulosis, internal and external hemorrhoids. He follows with PCP only at the OR. 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 Today he was sent for routine labs prior to his PCP visit this week which revealed hemoglobin of 5.2. The patient admits that he does have lightheadedness, shortness of breath, dyspnea on exertion for many months now that he feels he has just gotten used to and he does not believe it has changed much over the past few months. Dyspnea is relieved with 5-10minutes of rest. He has noticed over the past week that his legs have been more weak with some tingling in his feet which is new for him. Denies any syncopal episodes. He denies any nausea/vomiting, hematemesis, or abdominal pain. He reports that with almost every bowel movement he notices streaks of bright red blood. He denies any melena. He denies constipation or diarrhea and does not strain with his bowel movements. He is not on any blood thinner. He takes iron supplement twice a day and recently started a multivitamin but denies taking any other medications including NSAIDs. He denies any other medical complaints at this time. Review of Systems Except as stated in HPI: all other systems reviewed are Neg Past Family Social History Past Medical History iron deficient anemia requiring transfusions gastritis internal and external hemorrhoids PTSD Asthma, well controlled Hx of hypertension, on clonidine many years ago, not on any antihypertensives for years Past Surgical History Tibia-fibula fracture with hardware placement and removal Right eye soft tissue mass resection Lumbar spine foreign body/glass removal as a child EGD/colonoscopy Reported Medications Reported Meds & Active Scripts Active Protonix (Pantoprazole Sodium) 40 Mg Tab 40 Mg PO DAILY Reported Iron (Ferrous Fumarate) 18 Mg Tab Mg PO BID Allergies: Coded Allergies: No Known Allergies (Unverified , 07/07/16) Active Ordered Medications Current Medications Medications (Trade) Dose Ordered Sig/Lj Route Start Time Stop Time Status Last Admin Sodium Chloride 2 ml 2 ml UNSCH PRN IVF 12/03/16 16:45 (NS 250 ml Inj) 250 ml @ 15 mls/hr ONCE ONCE IV 12/03/16 17:30 12/04/16 10:09 Family History Mother with diabetes, hypertension Father , unknown causes 1 daughter with diabetes other daughter healthy Social History Denies any tobacco use Previously binged on alcohol on the weekends but now has not drank alcohol in 1 month Denies any illicit drug use 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 SKIN: Warm and dry. No rash. HEAD: Normocephalic. Atraumatic. EYES: Pupils equal and round. No scleral icterus. No injection or drainage. ENT: No nasal bleeding or discharge. Mucous membranes pink and moist. NECK: Supple. Trachea midline. CARDIOVASCULAR: Regular rate and rhythm. S1, S2 noted. No murmur appreciated. RESPIRATORY: No accessory muscle use. Clear to auscultation. Breath sounds equal bilaterally. GASTROINTESTINAL: Abdomen soft, non-tender, nondistended. Normoactive bowel sounds x4. MUSCULOSKELETAL: No obvious deformities. Extremities without clubbing, cyanosis , or edema. NEUROLOGICAL: Awake and alert. No obvious cranial nerve deficits. Motor grossly within normal limits. Normal speech. PSYCHIATRIC: Appropriate mood and affect; insight and judgment normal. Laboratory Laboratory Tests Test 12/03/16 12/03/16 16:53 17:47 White Blood Count 6.8 Red Blood Count 3.17 Hemoglobin 5.5 Hematocrit 19.3 Mean Corpuscular Volume 60.7 Mean Corpuscular Hemoglobin 17.3 Mean Corpuscular Hemoglobin 28.4 Concent Red Cell Distribution Width 21.1 Platelet Count 397 Mean Platelet Volume 7.7 Neutrophils (%) (Auto) 75.6 Lymphocytes (%) (Auto) 12.1 Monocytes (%) (Auto) 8.5 Eosinophils (%) (Auto) 2.4 Basophils (%) (Auto) 1.4 Neutrophils # (Auto) 5.2 Lymphocytes # (Auto) 0.8 Monocytes # (Auto) 0.6 Eosinophils # (Auto) 0.2 Basophils # (Auto) 0.1 CBC Comment DIFF FINAL Differential Comment Prothrombin Time 10.2 Prothromb Time International 0.9 Ratio Activated Partial 25.6 Thromboplast Time Sodium Level 141 Potassium Level 3.9 Chloride Level 109 Carbon Dioxide Level 26.4 Anion Gap 6 Blood Urea Nitrogen 14 Creatinine 1.07 Estimat Glomerular Filtration 88 Rate Random Glucose 96 Calcium Level 8.5 Total Bilirubin 0.3 Aspartate Amino Transf 10 (AST/SGOT) Alanine Aminotransferase 16 (ALT/SGPT) Alkaline Phosphatase 49 Total Protein 7.3 Albumin 3.4 Blood Type O POSITIVE Antibody Screen NEGATIVE Crossmatch Leukocyte-Reduced Red Blood Cells Blood Bank Comment Result Diagram: 12/03/16165212/03/161652 Assessment and Plan Problem List: (1) Anemia ICD Code: D64.9 Status: Acute (2) GI bleed ICD Code: K92.2 Status: Acute Assessment and Plan 51-year-old male with history of iron deficient anemia requiring transfusions, presents after routine outpatient labs at the OR revealed hemoglobin of 5.2 today Acute Symptomatic Blood Loss Anemia with Lower GI Bleeding: with hematochezia. patient reports symptoms of fatigue,SOB/BANEGAS,weakness. Hgb 5.5 upon arrival. Hx of EGD/colonoscopy by Dr. Kaplan showed gastritis, diverticulosis, internal and external hemorrhoids. -2u pRBCs transfusion ordered. -Continue IV Protonix. -Repeat CBC after transfusion. -Consult gastroenterology. Discussed with Dr. Ellsworth, recommends CT abdomen/ pelvis and will evaluate patient in am -Discussed with patient to f/up with hematology as outpatient -Clear liquid diet for now DVT Prophylaxis: teds/scds, avoid chemical prophylaxis with GI bleeding/anemia Discussed Condition With Patient, Dr. Jodee Crowe Physician Certification 2 Midnight Certification Type: Admission for Inpatient Services Order for Inpatient Services The services are ordered in accordance with Medicare regulations or non- Medicare payer requirements, as applicable. In the case of services not specified as inpatient-only, they are appropriately provided as inpatient services in accordance with the 2-midnight benchmark. Estimated LOS (days): 2 days is the estimated time the patient will need to remain in the hospital, assuming treatment plan goals are met and no additional complications. Post-Hospital Plan: Home Collaborating MD Comments The exam, history, and the medical decision-making described in the above note were completed with the assistance of the mid-level provider. I reviewed and agree with the findings presented. I attest that I had a [id number] encounter with the patient on the same day, and personally performed and documented my assessment and findings in the medical record. Patient presented with abnormal hemoglobin. He denies any chest pain, tightness of breathing, lightheadedness dizziness. Patient denies abdominal pain. He stated that he did have bright red blood for about 2 days. He saw his physician and and hemoglobin was obtained and it was abnormal so he was told to go to emergency department. Patient had no other complaints. gen NAD CV RRR. no r/m/g Abd soft NDNT. No hepatosplenomegaly. Negative for any abdominal pain. GI bleed -Most likely lower GI bleed due to diverticulosis.-2u pRBCs transfusion ordered. -We'll start patient on IV Protonix. 2 units of packed red blood cells already order in the ED. Follow with posttransfusion H&H. -Consult GI who recommends CT scan of the abdomen/pelvis and will reevaluate in the a.m. Problem Qualifiers (1) Anemia: Qualified Code: D64.9 - Anemia, unspecified type (2) GI bleed: Qualified Code: K92.2 - Gastrointestinal hemorrhage, unspecified gastrointestinal hemorrhage type Tania Larsen PA-C Dec 03, 2016 18:29 Naomy Paige MD Dec 03, 2016 19:18
[2016-12-03] MEDS ORDERED: BISACODYL 10 MG SUPP RECTAL PRN (18:30)
[2016-12-03] MEDS ORDERED: LACTULOSE SYRUP 20 GM/30 ML CUP PO PRN (18:30)
[2016-12-03] MEDS ORDERED: NALOXONE HCL 0.4 MG/ML AMP IV PRN (18:30)
[2016-12-03] MEDS ORDERED: ACETAMINOPHEN/HYDROcodone 325 MG/5 MG TAB PO PRN (18:30)
[2016-12-03] MEDS ORDERED: SENNOSIDES 8.6 MG TAB PO PRN (18:30)
[2016-12-03] MEDS ORDERED: MAGNESIUM HYDROXIDE SUSP 30 ML CUP PO PRN (18:30)
[2016-12-03] MEDS ORDERED: SODIUM CHLORIDE 0.9% FLUSH 10 ML FLUSH IV FLUSH PRN (18:30)
[2016-12-03] MEDS ORDERED: ACETAMINOPHEN 325 MG TAB PO PRN (18:30)
[2016-12-03] MEDS ORDERED: ONDANSETRON HCL 4 MG/2 ML VIAL IVP PRN (18:30)
[2016-12-03] MEDS: PANTOPRAZOLE SODIUM 40 MG VIAL IV PUSH SCH (18:30)
[2016-12-03] MEDS ORDERED: IOHEXOL 350 MG/ML 10 ML VIAL (for RAD DIAG) IV ONE (19:55)
--- NOTE | 2016-12-03 20:31 | RADRPT ---
EXAM DATE/TIME: 12/03/2016 19:52 [facility] COMPARISON: No previous studies available for comparison. INDICATIONS : Blood in stool. IV CONTRAST: 96 cc Omnipaque 350 (iohexol) IV ORAL CONTRAST: Prescribed oral contrast ingested. RADIATION DOSE: 16.33 CTDIvol (mGy) MEDICAL HISTORY : GI bleed. SURGICAL HISTORY : None. ENCOUNTER: Initial ACUITY: 1 day PAIN SCALE: 0/10 LOCATION: abdomen TECHNIQUE: Volumetric scanning of the abdomen and pelvis was performed. Using automated exposure control and ad justment of the mA and/or kV according to patient size, radiation dose was kept as low as reasonably achievable to obtain optimal diagnostic quality images. DICOM format image data is available electro nically for review and comparison. FINDINGS: LOWER LUNGS: The visualized lower lungs are clear. LIVER: Homogeneous density without lesion. There is no dilation of the biliary tree. No calcified gallston es. SPLEEN: Normal size without lesion. PANCREAS: Within normal limits. KIDNEYS: Normal in size and shape. There is no mass, stone or hydronephrosis. ADRENAL GLANDS: Within normal limits. VASCULAR: There is no aortic aneurysm. BOWEL/MESENTERY: Multiple diverticuli are present greatest in the sigmoid colon. There is no definite wall thickening or inflammatory change. No oral contrast was given limiting the sensitivity. There are several loops of nondilated air-containing small bowel several small air-fluid levels. There is no free air or flui d. ABDOMINAL WALL: Within normal limits. RETROPERITONEUM: There is no lymphadenopathy. BLADDER: No wall thickening or mass. REPRODUCTIVE: Within normal limits. INGUINAL: There is no lymphadenopathy or hernia. MUSCULOSKELETAL: Within normal limits for patient age. CONCLUSION: 1. Mild diverticulosis. 2. Mildly nonspecific, nonobstructive bowel gas pattern which could represent a mild ileus or gastroe nteritis. No oral contrast was given limiting sensitivity. Mahamed Toro MD on December 03, 2016 at 20:28 Board Certified Radiologist. This report was verified electronically.
[2016-12-03] MEDS: SODIUM CHLORIDE 0.9% FLUSH 10 ML FLUSH IV FLUSH SCH (21:00)
[2016-12-03] MEDS: DOCUSATE SODIUM 50 MG/SENNA 8.6 MG TAB PO SCH (21:00)
[2016-12-04] VITALS: BP 135/70; PULSE 71; RESP 18; TEMP 97.4; O2SAT 98
[2016-12-04 04:00] VITALS: BP 134/70; PULSE 73; RESP 18; TEMP 98.1; O2SAT 97
[2016-12-04 08:00] VITALS: BP 134/78; PULSE 62; RESP 20; TEMP 97; O2SAT 98
[2016-12-04 08:10] LABS: AUTOMATED NEUTROPHIL # 4.3 TH/MM3 (1.8-7.7); BASOPHIL # 0.1 TH/MM3 (0-0.2); EOSINOPHIL # 0.2 TH/MM3 (0-0.4); EOSINOPHIL % 2.8 % (0.0-4.0); HEMATOCRIT 23.6 % (39.0-51.0); HEMO FLAGS DIFF FINAL; LYMPH % 11.5 % (9.0-44.0); LYMPHOCYTE # 0.7 TH/MM3 (1.0-4.8); MEAN CELL VOLUME 63.8 FL (80.0-100.0); MEAN CORPUSCULAR HEMOGLOBIN 19.5 PG (27.0-34.0); MEAN CORPUSCULAR HGB CONC 30.5 % (32.0-36.0); MONO % 11.4 % (0.0-8.0); NEUT % 72.3 % (16.0-70.0); PLATELET COUNT 357 TH/MM3 (150-450); RED CELL DISTRIBUTION WIDTH 24.2 % (11.6-17.2); WHITE BLOOD COUNT 5.9 TH/MM3 (4.0-11.0)
[2016-12-04 08:35] LABS: ANION GAP 7 MEQ/L (5-15); AST (GOT) 8 U/L (15-37); BICARBONATE 23.6 MEQ/L (21.0-32.0); BLOOD UREA NITROGEN 13 MG/DL (7-18); CHLORIDE 108 MEQ/L (98-107); GLOMERULAR FILTRATION RATE 94 ML/MIN (>89); SODIUM (NA) 139 MEQ/L (136-145)
[2016-12-04 08:39] LABS: ALKALINE PHOSPHATASE 48 U/L (45-117); ALT (GPT) 12 U/L (12-78); TOTAL BILIRUBIN ADULT 0.4 MG/DL (0.2-1.0)
[2016-12-04] MEDS: SODIUM CHLORIDE 0.9% FLUSH 10 ML FLUSH IV FLUSH SCH ×2 (09:18→20:21)
[2016-12-04] MEDS: DOCUSATE SODIUM 50 MG/SENNA 8.6 MG TAB PO SCH ×2 (09:18→20:21)
--- NOTE | 2016-12-04 09:37 | HHI.PR ---
Subjective Remarks f/u for Gi bleed patient denied any symptoms. denied any active GI bleed. very anxious to eat. Objective Vitals Vital Signs Date Time Temp Pulse Resp B/P Pulse Ox O2 Delivery O2 Flow Rate FiO2 12/04/16 08:00 97.0 62 20 134/78 98 12/04/16 04:00 98.1 73 18 134/70 97 12/04/16 04:00 Room Air 12/04/16 00:00 97.4 71 18 135/70 98 12/04/16 00:00 Room Air 12/03/16 21:05 98.2 88 20 142/76 98 12/03/16 20:30 97.6 73 18 154/86 100 12/03/16 20:00 98.4 66 16 142/93 100 Room Air 12/03/16 20:00 Room Air 12/03/16 19:30 98.3 57 16 133/86 100 Room Air 12/03/16 19:15 98.5 58 16 129/64 100 Room Air 12/03/16 19:05 98.3 67 14 123/66 98 Room Air 12/03/16 19:05 98.3 67 14 123/66 100 Room Air 12/03/16 18:50 98.3 60 16 119/67 100 Room Air 12/03/16 18:50 98.5 80 20 148/68 98 12/03/16 16:46 16 100 Room Air 12/03/16 16:37 98.3 84 16 138/78 100 Room Air 12/03/16 16:27 97.9 97 15 134/86 98 I/O 12/03/16 12/03/16 12/03/16 12/04/16 12/04/16 12/04/16 07:00 15:00 23:00 07:00 15:00 23:00 Intake Total 240 ml 700 ml Balance 240 ml 700 ml Intake Oral 240 ml IV Total 200 ml Packed Cells 500 ml # Voids 1 Result Diagram: 12/04/1671612/04/16716 Objective Remarks GENERAL: in NAD CARDIOVASCULAR: Regular rate and rhythm without murmurs, gallops, or rubs. RESPIRATORY: Breath sounds equal bilaterally. No accessory muscle use. GASTROINTESTINAL: Abdomen soft, non-tender, nondistended. MUSCULOSKELETAL: No cyanosis, or edema. BACK: Nontender without obvious deformity. No CVA tenderness. Medications and IVs Current Medications Pantoprazole Sodium (Protonix Inj) 40 mg ONCE ONCE IVP Last administered on 17:01; Start 12/03/16 at 16:45; Stop 12/03/16 at 16:47; Status DC Sodium Chloride 2 ml 2 ml UNSCH PRN IVF FLUSH AFTER USING IV ACCESS; Start 12/03 at 16:45 Sodium Chloride (NS 250 ml Inj) 250 ml @ 15 mls/hr ONCE ONCE IV Last administered on 12/03/16 19:17; Start 12/03/16 at 17:30; Stop 12/04/16 at 10:09 Sodium Chloride (NS Flush) 2 ml UNSCH PRN IV FLUSH FLUSH AFTER USING IV ACCESS ; Start 12/03/16 at 18:30 Sodium Chloride (NS Flush) 2 ml BID IV FLUSH Last administered on 12/04/16 09: 18; Start 12/03/16 at 21:00 Ondansetron HCl (Zofran Inj) 4 mg Q6H PRN IVP NAUSEA OR VOMITING; Start at 18:30 Acetaminophen (Tylenol) 650 mg Q6H PRN PO headache/fever/pain1-2; Start at 18:30 Acetaminophen/ Hydrocodone Bitart ([place] 5-325 Mg) 1 tab Q6H PRN PO PAIN SCALE 3 TO 10; Start 12/03/16 at 18:30 Naloxone HCl (Narcan Inj) 0.4 mg UNSCH PRN IV SEE LABEL COMMENTS; Start at 18:30 Senna/Docusate Sodium (Arianne-Colace) 1 tab BID PO Last administered on 12/04/16 09:18; Start 12/03/16 at 21:00 Magnesium Hydroxide (Milk Of Magnesia Liq) 30 ml Q12H PRN PO MILD - MODERATE CONSTIPATION; Start 12/03/16 at 18:30 Sennosides (Senokot) 17.2 mg Q12H PRN PO MODERATE - SEVERE CONSTIPATION; Start 12/03/16 at 18:30 Bisacodyl (Dulcolax Supp) 10 mg DAILY PRN RECTAL SEVERE CONSITIPATION; Start at 18:30 Lactulose (Lactulose Liq) 30 ml DAILY PRN PO SEVERE CONSITIPATION; Start at 18:30 Pantoprazole Sodium (Protonix Inj) 40 mg Q24H IV PUSH ; Start 12/03/16 at 18:30 Iohexol (Omnipaque 350 Inj) 96 ml STK-MED ONCE IV Last administered on t 19:55; Start 12/03/16 at 19:55; Stop 12/03/16 at 19:56; Status DC A/P Problem List: (1) Anemia ICD Code: D64.9 Status: Acute (2) GI bleed ICD Code: K92.2 Status: Acute Assessment and Plan 51-year-old male with history of iron deficient anemia requiring transfusions, presents after routine outpatient labs at the [place] revealed hemoglobin of 5.2 today Acute Symptomatic Blood Loss Anemia with Lower GI Bleeding: with hematochezia. patient reports symptoms of fatigue,SOB/BANEGAS,weakness. Hgb 5.5 upon arrival. Hx of EGD/colonoscopy by Dr. Kaplan showed gastritis, diverticulosis, internal and external hemorrhoids. -CT scan showed possible ileus, gastroenteritis, and diverticulosis. -s/p 2u pRBCs with appropriate post transfusion result. no GI bleed at the moment but will repeat H/H at 12. -Continue IV Protonix. -pending GI consult. -NPO at the moment pending recommendations. DVT Prophylaxis: teds/scds, avoid chemical prophylaxis with GI bleeding/anemia Problem Qualifiers (1) Anemia: Qualified Code: D64.9 - Anemia, unspecified type (2) GI bleed: Qualified Code: K92.2 - Gastrointestinal hemorrhage, unspecified gastrointestinal hemorrhage type Naomy Paige MD Dec 04, 2016 09:37
--- NOTE | 2016-12-04 09:51 | PD.CONS ---
HPI History of Present Illness Mr. Hermosillo is a 51 y/o male with microcytic/hypochromic anemia which has required transfusions previously. He routinely gets outpatient labs done at the [facility] and his most recent labs revealed Hgb 5.2 and was sent to the ED for further evaluation. Pt was previously admitted in 06/2016 with anemia and underwent evaluation with EGD/colonoscopy which revealed gastritis, diverticulosis, internal and external hemorrhoids. He has not been seen a software maintenance engineer. He was sent for routine labs prior to his PCP visit this week which revealed hemoglobin of 5.2. Pt has received 2 units of PRBCs following admission. His repeat labs today with Hgb 7.2. The patient admits that he has had lightheadedness, shortness of breath, and dyspnea on exertion for several months which has been unchanged since his previous admission. He has noticed over the past week that his legs have been more weak with some tingling in his feet which is new for him. CT Abd/pelvis (12/04/16) revealed mild diverticulosis, mildly nonspecific, nonobstructive bowel gas pattern which could represent a mild ileus or gastroenteritis but no oral contrast was given limiting sensitivity. He reports that he has been having normal BMs daily with some streaks of bright red blood on the stool. He reports that he notes this is more prominent when he has been drinking. He occasionally gets some nausea and reflux related to eating certain foods, specifically acidic pasta sauces or steak. He denies any abdominal pain, vomiting, constipation, diarrhea, hematemesis, or melena. Denies any rectal pain or pruritus. He states that his stools are occasionally dark from the iron supplements that he takes. He is not on any blood thinner. Denies any NSAID use. He is not on any PPI. He does drink ETOH on weekends, but states that he has not had any alcohol in the last 3 weeks. He denies any family hx of esophageal, gastric, or colorectal cancer. (Cora Gaming) [facility] Past Medical History Microcytic/Hypochromic anemia requiring transfusions Gastritis Internal and external hemorrhoids PTSD Asthma, well controlled Hx of hypertension, on clonidine many years ago, not on any antihypertensives for years Past Surgical History Tibia-fibula fracture with hardware placement and removal Right eye soft tissue mass resection Lumbar spine foreign body/glass removal as a child EGD/colonoscopy (Cora Gaming) Coded Allergies: No Known Allergies (Unverified , 07/07/16) Medications Iron (Ferrous Fumarate) 18 Mg Tab Mg PO BID Family History Denies any family hx of GI related malignancy or IBD Social History Denies any tobacco or illicit drug use Previously binge drinking alcohol on the weekends but has not had any alcohol in the last 3 weeks (Cora Gaming) Review of Systems Constitutional: COMPLAINS OF: Fatigue, DENIES: Fever, Chills Respiratory: COMPLAINS OF: Shortness of breath, DENIES: Hemoptysis Cardiovascular: DENIES: Chest pain, Palpitations Gastrointestinal: COMPLAINS OF: Bloody stools, DENIES: Abdominal pain, Constipation, Diarrhea, Nausea, Vomiting, Odynophagia, Swelling of Abdomen, Heartburn Genitourinary: DENIES: Hematuria Musculoskeletal: DENIES: Stiffness Integumentary: DENIES: Rash Neurologic: DENIES: Headache Psychiatric: DENIES: Confusion (Cora Gaming) GI Exam Vitals I&O Vital Signs Date Time Temp Pulse Resp B/P Pulse Ox O2 Delivery O2 Flow Rate FiO2 12/04/16 04:00 98.1 73 18 134/70 97 12/04/16 04:00 Room Air 12/04/16 00:00 97.4 71 18 135/70 98 12/04/16 00:00 Room Air 12/03/16 21:05 98.2 88 20 142/76 98 12/03/16 20:30 97.6 73 18 154/86 100 12/03/16 20:00 98.4 66 16 142/93 100 Room Air 12/03/16 20:00 Room Air 12/03/16 19:30 98.3 57 16 133/86 100 Room Air 12/03/16 19:15 98.5 58 16 129/64 100 Room Air 12/03/16 19:05 98.3 67 14 123/66 98 Room Air 12/03/16 19:05 98.3 67 14 123/66 100 Room Air 12/03/16 18:50 98.3 60 16 119/67 100 Room Air 12/03/16 18:50 98.5 80 20 148/68 98 12/03/16 16:46 16 100 Room Air 12/03/16 16:37 98.3 84 16 138/78 100 Room Air 12/03/16 16:27 97.9 97 15 134/86 98 I/O 12/03/16 12/03/16 12/03/16 12/04/16 12/04/16 12/04/16 07:00 15:00 23:00 07:00 15:00 23:00 Intake Total 240 ml 700 ml Balance 240 ml 700 ml Intake Oral 240 ml IV Total 200 ml Packed Cells 500 ml # Voids 1 Imaging Last Impressions Abdomen/Pelvis CT 12/03/16 0000 Signed Impressions: Service Date/Time: Saturday, December 03, 2016 19:52 - CONCLUSION: 1. Mild diverticulosis. 2. Mildly nonspecific, nonobstructive bowel gas pattern which could represent a mild ileus or gastroenteritis. No oral contrast was given limiting sensitivity. Mahamed Toro MD Laboratory Test 12/03/16 12/03/16 12/04/16 16:53 17:47 07:17 White Blood Count 6.8 TH/MM3 5.9 TH/MM3 Red Blood Count 3.17 MIL/MM3 3.70 MIL/MM3 Hemoglobin 5.5 GM/DL 7.2 GM/DL Hematocrit 19.3 % 23.6 % Mean Corpuscular Volume 60.7 FL 63.8 FL Mean Corpuscular Hemoglobin 17.3 PG 19.5 PG Mean Corpuscular Hemoglobin 28.4 % 30.5 % Concent Red Cell Distribution Width 21.1 % 24.2 % Platelet Count 397 TH/MM3 357 TH/MM3 Mean Platelet Volume 7.7 FL 8.5 FL Neutrophils (%) (Auto) 75.6 % 72.3 % Lymphocytes (%) (Auto) 12.1 % 11.5 % Monocytes (%) (Auto) 8.5 % 11.4 % Eosinophils (%) (Auto) 2.4 % 2.8 % Basophils (%) (Auto) 1.4 % 2.0 % Neutrophils # (Auto) 5.2 TH/MM3 4.3 TH/MM3 Lymphocytes # (Auto) 0.8 TH/MM3 0.7 TH/MM3 Monocytes # (Auto) 0.6 TH/MM3 0.7 TH/MM3 Eosinophils # (Auto) 0.2 TH/MM3 0.2 TH/MM3 Basophils # (Auto) 0.1 TH/MM3 0.1 TH/MM3 CBC Comment DIFF FINAL DIFF FINAL Differential Comment Prothrombin Time 10.2 SEC Prothromb Time International 0.9 RATIO Ratio Activated Partial 25.6 SEC Thromboplast Time Sodium Level 141 MEQ/L 139 MEQ/L Potassium Level 3.9 MEQ/L 4.0 MEQ/L Chloride Level 109 MEQ/L 108 MEQ/L Carbon Dioxide Level 26.4 MEQ/L 23.6 MEQ/L Anion Gap 6 MEQ/L 7 MEQ/L Blood Urea Nitrogen 14 MG/DL 13 MG/DL Creatinine 1.07 MG/DL 1.01 MG/DL Estimat Glomerular Filtration 88 ML/MIN 94 ML/MIN Rate Random Glucose 96 MG/DL 78 MG/DL Calcium Level 8.5 MG/DL 8.5 MG/DL Total Bilirubin 0.3 MG/DL 0.4 MG/DL Aspartate Amino Transf 10 U/L 8 U/L (AST/SGOT) Alanine Aminotransferase 16 U/L 12 U/L (ALT/SGPT) Alkaline Phosphatase 49 U/L 48 U/L Total Protein 7.3 GM/DL 6.6 GM/DL Albumin 3.4 GM/DL 3.1 GM/DL Blood Type O POSITIVE Antibody Screen NEGATIVE Crossmatch Leukocyte-Reduced Red Blood Cells Blood Bank Comment Physical Examination HEENT: Pupils round and reactive to light; normocephalic; atraumatic; no jaundice. Throat is clear. NECK: Neck is supple, no JVD, no lymphadenopathy. CHEST: CTA CARDIAC: Regular ABDOMEN: +BS, soft, nondistended, nontender. EXTREMITIES: No clubbing, cyanosis, or edema. SKIN: Normal; no rash; no jaundice. HEAD WOOD GRINDER: No focal deficits; alert and oriented times three. (Cora Gaming) Assessment and Plan Plan ASSESSMENT: - Severe symptomatic iron deficiency anemia. Pt was previously admitted in 2016 with anemia and underwent evaluation with EGD/colonoscopy which revealed gastritis, diverticulosis, internal and external hemorrhoids. He has not been seen a software maintenance engineer. He was sent for routine labs prior to his PCP visit this week which revealed hemoglobin of 5.2. Pt has received 2 units of PRBCs and repeat labs today with Hgb 7.2. The patient admits that he has had lightheadedness, SOB and BANEGAS several months. CT Abd/pelvis (12/04/16) ---> mild diverticulosis, mildly nonspecific, nonobstructive bowel gas pattern which could represent a mild ileus or gastroenteritis but no oral contrast was given limiting sensitivity. Pt does not appear to have a symptomatic ileus currently. He is toelrating clear liquids. NO abdominal pain, N/V. He reports that he has been having normal BMs daily with some streaks of bright red blood on the stool. He reports that he notes this is more prominent when he has been drinking. He is not on any blood thinner. Denies any NSAID use. Pt has been using Iron supplements BID at home but iron studies here revealed Serum Fe 24, TIBC 567, %Sat 4.2, Ferritin 2. - Nausea and reflux related to eating certain foods, specifically acidic pasta sauces or steak. He is not on any PPI. He does drink ETOH on weekends, but states that he has not had any alcohol in the last 3 weeks. Protonix 40mg IV daily. - Binge alcohol use. None for the last 3 weeks. PLAN: - Given pts recent evaluation with EGD/colonoscopy in 06/2016 with noted gastritis, diverticulosis and hemorrhoids we will not plan for repeat procedures at this time. - Pt will need outpt evaluation with Capsule Endoscopy to further assess the small bowel. We will obtain and small bowel follow through in preparation for outpt CE. - He should receive some IV iron infusions during this admission. - Pt is currently on clear liquid diet. Will await Dr. Ellsworth's evaluation of the patient today to determine about advancing his diet. - His streaks of blood on the stool is likely related to his hemorrhoids. Pt should use Preparation H, stool softeners and sitzs baths for his hemorrhoids. - His nausea/reflux is likely related to his alcohol use and gastritis. He will need to continue on PPI as an outpt. - Cont. oral iron supplementation with FeSO4 325mg po BID. - Monitor H/H - Transfuse as necessary - Notify GI of any active GIB. - Supportive care - Further recs as the case develops - The pt was seen and examined by myself and Dr. Ellsworth, this note was written on her behalf. (Cora Gaming) Physician Comments seen, examined agree with above small bowel follow-through is negative patient had beed anemic for many years , as per him as far as 1991, had multiple endoscopies and colonoscopies, essentially negative never had capsule endoscopy advance diet iron infusion hematology consult celiac panel, sed rate if hb stable and no active bleeding can be dc home with close fu with [facility] /gi / hematology (Tea Ellsworth MD) Cora Gaming Dec 04, 2016 09:51 Tea Ellsworth MD Dec 04, 2016 14:30
[2016-12-04 10:06] LABS: TRANSFERRIN IRON PROFILE 405 MG/DL (200-360)
[2016-12-04 10:08] LABS: FERRITIN 2 NG/ML (26-388)
[2016-12-04] MEDS ORDERED: PETROLEUM/SHARK LIVER OIL 60 GM TUBE TOPICAL PRN (11:15)
[2016-12-04] MEDS ORDERED: DIATRIZOATE MEGLUM/DIATRIZOATE SOD 120 ML BTL (for RAD DIAG) PO ONE (11:55)
--- NOTE | 2016-12-04 14:26 | RADRPT ---
EXAM DATE/TIME: 12/04/2016 11:50 [place] COMPARISON: No previous studies available for comparison. INDICATIONS : Anemia. FLUORO TIME: 2.7 minutes IMAGE COUNT: 22 CONTRAST: Gastrokatiuska IMAGING TIME(S): 15 min, 30 min, 45 min, 1 hr, 1.5 hrs, 2.5 hrs MEDICAL HISTORY : Gastrointestinal bleed. SURGICAL HISTORY : None. ENCOUNTER: Initial ACUITY: 3 days PAIN SCORE: 6/10 LOCATION: Bilateral abdomen FINDINGS: Preliminary film is unremarkable. The stomach is grossly unremarkable. Examination of the small bowel demonstrates normal mucosal pattern involving the jejunum and ileum. There is no evidence of mass or obstruction. No intraluminal filling defects are identified. Small bowel transit time is normal at 90 minutes. Fluoroscopy of the abdomen and terminal ileum demonstrat es no abnormality. CONCLUSION: Unremarkable small bowel examination. Omar Lehman MD on December 04, 2016 at 14:23 Board Certified Radiologist. This report was verified electronically.
[2016-12-04 16:00] VITALS: BP 130/70; PULSE 70; RESP 20; TEMP 97; O2SAT 100
[2016-12-04 20:00] VITALS: BP 146/65; PULSE 81; RESP 18; TEMP 97.5; O2SAT 98
[2016-12-04] MEDS: PANTOPRAZOLE SODIUM 40 MG VIAL IV PUSH SCH (20:05)
[2016-12-04] MEDS: IRON SUCROSE INJ 200 MG in SODIUM CHLORIDE 0.9% INJ 100 ML IV SCH (20:06)
[2016-12-04 21:11] LABS: MEAN CORPUSCULAR HGB CONC 29.6 % (32.0-36.0)
[2016-12-05] VITALS: BP 132/80; PULSE 66; RESP 16; TEMP 97.8; O2SAT 98
[2016-12-05 04:00] VITALS: BP 135/72; PULSE 67; RESP 16; TEMP 97.9; O2SAT 98
[2016-12-05 07:30] VITALS: BP 154/73; PULSE 62; RESP 20; TEMP 96.8; O2SAT 99
[2016-12-05] MEDS: DOCUSATE SODIUM 50 MG/SENNA 8.6 MG TAB PO SCH (09:00)
[2016-12-05] MEDS: SODIUM CHLORIDE 0.9% FLUSH 10 ML FLUSH IV FLUSH SCH (09:11)
--- NOTE | 2016-12-05 09:31 | MB ---
cc: RIKY LAZAR MD [facility], DATE OF CONSULTATION: 12/05/2016 DATE OF : 1965 REASON FOR CONSULTATION Severe microcytic anemia in a patient with chronic lower GI bleeding. CHIEF COMPLAINT Progressive difficulty breathing with exertion and fatigue. The patient also reports having stools streaked with red blood which have been a chronic issue for the past five or six years. HISTORY OF PRESENT ILLNESS Mr. Hermosillo is a very pleasant 51-year-old male. 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 He presently works for a [employer] in [place]. Mr. Hermosillo reports having had increasing fatigue, difficulty breathing and chronic blood-streaked stools. He reports the bleeding in his stool has been a chronic issue and has been ongoing for the past five or six years. He tells me that there was really no increase in severity of the bleeding over the past few weeks. He reports the bleeding occurs intermittently and can occur at a frequency varying from once a month to once every week. The blood typically coats the outside of the stools. He does have a history of hemorrhoids and underwent a hemorrhoidectomy about five years ago. He also reports undergoing colonoscopies with removal of multiple colon polyps in the past as well. He tells me he underwent blood work late last week as a part of a routine PA follow-up. The hemoglobin came back low and he received a phone call from [facility] early Monday (two days ago). He was instructed to go straight to the emergency department at [facility] which he did. Since his admission he has been transfused two units of packed red blood cells. He also underwent an EGD which indicated no definite evidence of a lesion which may have bled. The hematology service has been asked to see him for further work-up and management of the anemia. Additionally, the patient did undergo serum iron studies which predictably indicated classical findings for iron deficiency with depleted ferritin, low percent iron saturation, low iron level and low TIBC as well. A GI work-up for malabsorption syndrome is also pending. PAST MEDICAL HISTORY 1. Hypertension. 2. Anemia with microcytosis. 3. Cramps. 4. Asthma. 5. Previous history of GI bleeding. PAST SURGICAL HISTORY 1. Colonoscopy. 2. Ankle surgery. 3. Back surgery. 4. Hemorrhoidectomy. FAMILY HISTORY Mom is living. She has diabetes. Father is . He of complications of multiple medical issues including chronic kidney disease. The patient's 25-year-old daughter has a history of diabetes. She was diagnosed when she was about 24. SOCIAL HISTORY The patient reports being a lifelong nonsmoker. He reports drinking maybe 3-4 drinks on Fridays and Saturdays but denies drinking on . He denies ever having been heavy or regular alcohol drinker. He works for a [employer] in [place]. He served in the [employer] between 1987 and 1991. He never served active duty overseas. ALLERGIES No known drug allergies. MEDICATIONS Current inpatient medications: 1. Iron sucrose 200 mg IV q.24h. 2. Hydrocodone/acetominophen, one tablet p.o. q.6h. as needed for pain. 3. Colace/Dulcolax 10 mg per rectal as needed for severe constipation. 4. Lactulose 30 mL p.o. daily. 5. Naloxone 0.4 mg IV as needed. 6. Zofran 4 mg IV q.6h. as needed for nausea and vomiting. 7. Pantoprazole 40 mg IV once daily. 8. Senokot 17.2 mg p.o. q.12h. REVIEW OF SYSTEMS CONSTITUTIONAL: The patient reports fatigue and breathlessness with exertion. Denies fevers, chills or night sweats. HEENT: Denies headaches, blurry vision, difficulty swallowing or soreness in the throat. RESPIRATORY: Denies cough, hemoptysis, pleuritic chest pain. He reports exertional dyspnea. CARDIOVASCULAR: Denies angina-like chest pain, PND, orthopnea. Denies lower extremity swelling. GASTROINTESTINAL: Reports noting hematochezia. Denies abdominal pain, nausea, vomiting, diarrhea, hematemesis, abdominal distention or jaundice. GENITOURINARY: No complaints. CANE LOADER: Denies any focal sensory or motor deficits. LABORATORY FINDINGS: Blood work dated 12/04/2016: WBC count 5.9, hemoglobin 7.9 gm/dl, hematocrit 23.6%, MCV 63.8. ESR is elevated at 45. Sodium 139, potassium 4, chloride 108, bicarb 23.6, BUN 7, creatinine 1, random glucose 78, calcium 8.5. Iron 24, TIBC 567, percent iron saturation 4.2, ferritin level 2. Total bilirubin 0.4, AST 8, ALT 12, alkaline phosphatase 48, albumin 3.1. ASSESSMENT Mr. Hermosillo is a very pleasant 51-year-old man with a history of chronic lower GI bleeding which he describes as "red blood streaking the outside of his stool close." He reports this has been an active and ongoing issue for the past five or six years. Some years ago he underwent hemorrhoidectomy which failed to control this. He has also been noted to have multiple polyps in the colon which have previously been removed during colonoscopy. This is his third or fourth hospitalization for symptomatic iron deficiency. So far this admission he has received two units of packed red blood cells, one dose of iron sucrose 200 mg, and has undergone a colonoscopy. His serum iron studies are consistent with iron deficiency. This would most likely be the underlying cause for his microcytic anemia. RECOMMENDATIONS 1. Iron deficiency anemia with resultant microcytosis and symptoms of fatigue, weakness and breathlessness with exertion. It is apparent based on his history and his chronic symptoms of blood in the stool that the iron deficiency is secondary to GI bleeding. He will require GI work-up as an outpatient with I believe repeat colonoscopy. 2. I would dose him again today with iron sucrose 200 mg IV and then he may be discharged home. I would like to see him in follow-up in my office in [facility] in the upcoming weeks to evaluate his hemoglobin and hematocrit. In the upcoming three or four months I would also like to obtain a hemoglobin electrophoresis to rule out an underlying hemoglobinopathy which may be contributing to the microcytosis as well. It would not be helpful to obtain this study at this point since he has already had a red cell transfusion earlier this hospitalization. I would also recommend he be discharged on oral iron replacement therapy with ferrous sulfate. MD LILLI Morton/MIKAYLA /8:49 AM /9:12 AM
[2016-12-05] MEDS: IRON SUCROSE INJ 200 MG in SODIUM CHLORIDE 0.9% INJ 100 ML IV SCH (10:12)
[2016-12-05 10:23] LABS: AUTOMATED NEUTROPHIL # 5.1 TH/MM3 (1.8-7.7); BASOPHIL # 0.1 TH/MM3 (0-0.2); BASOPHIL % 1.1 % (0.0-2.0); EOSINOPHIL # 0.1 TH/MM3 (0-0.4); EOSINOPHIL % 2.3 % (0.0-4.0); HEMATOCRIT 25.8 % (39.0-51.0); HEMO FLAGS DIFF FINAL; LYMPH % 11.8 % (9.0-44.0); LYMPHOCYTE # 0.8 TH/MM3 (1.0-4.8); MEAN CELL VOLUME 64.9 FL (80.0-100.0); MEAN CORPUSCULAR HEMOGLOBIN 19.2 PG (27.0-34.0); MONO % 7.3 % (0.0-8.0); NEUT % 77.5 % (16.0-70.0); PLATELET COUNT 392 TH/MM3 (150-450); RED BLOOD COUNT 3.97 MIL/MM3 (4.50-5.90); RED CELL DISTRIBUTION WIDTH 24.2 % (11.6-17.2); WHITE BLOOD COUNT 6.5 TH/MM3 (4.0-11.0)
[2016-12-05 11:30] VITALS: BP 151/70; PULSE 67; RESP 20; TEMP 97.3; O2SAT 98
[2016-12-05] MEDS ORDERED: FERR324T4 PO (11:37)
--- NOTE | 2016-12-05 11:38 | HHI.DCPOC ---
Discharge Care Plan Diagnosis: (1) Anemia (2) GI bleed Goals to Promote Your Health * To prevent worsening of your condition and complications * To maintain your health at the optimal level Directions to Meet Your Goals Take your medications as prescribed Follow your dietary instruction Follow activity as directed Keep your appointments as scheduled Take your immunizations and boosters as scheduled If your symptoms worsen call your PCP, if no PCP go to Urgent Care Center or Emergency Room Smoking is Dangerous to Your Health. Avoid second hand smoke Call the 24-hour hour crisis hotline for domestic abuse at Naomy Paige MD Dec 05, 2016 11:38
--- NOTE | 2016-12-05 11:39 | HHI.DS ---
Discharge Summary Admission Date Dec 03, 2016 at 17:45 Discharge Date: Dec 05, 2016 Admitting Diagnosis anemia, GI bleed (1) Anemia ICD Code: D64.9 Diagnosis: Principal (2) GI bleed ICD Code: K92.2 Diagnosis: Principal Procedures none Brief History - From Admission 51-year-old male with history of iron deficient anemia requiring transfusions, presents after routine outpatient labs at the [facility] revealed hemoglobin of 5.2 today. Patient reports he was first diagnosed with anemia two years ago requiring blood transfusion, underwent EGD/colonoscopy that was unremarkable. He then had another hospitalization here at [facility] in June 2016, underwent EGD/colonoscopy that revealed gastritis, diverticulosis, internal and external hemorrhoids. He follows with PCP only at the [facility]. He has never seen a director corporate. Today he was sent for routine labs prior to his PCP visit this week which revealed hemoglobin of 5.2. The patient admits that he does have lightheadedness, shortness of breath, dyspnea on exertion for many months now that he feels he has just gotten used to and he does not believe it has changed much over the past few months. Dyspnea is relieved with 5-10minutes of rest. He has noticed over the past week that his legs have been more weak with some tingling in his feet which is new for him. Denies any syncopal episodes. He denies any nausea/vomiting, hematemesis, or abdominal pain. He reports that with almost every bowel movement he notices streaks of bright red blood. He denies any melena. He denies constipation or diarrhea and does not strain with his bowel movements. He is not on any blood thinner. He takes iron supplement twice a day and recently started a multivitamin but denies taking any other medications including NSAIDs. He denies any other medical complaints at this time. CBC/BMP: 12/05/16 0921 12/04/16 0717 Significant Findings Laboratory Tests Test 12/03/16 12/04/16 12/04/16 12/05/16 16:53 07:17 17:55 09:21 Red Blood Count 3.17 MIL/MM3 3.70 MIL/MM3 3.97 MIL/MM3 (4.50-5.90) (4.50-5.90) (4.50-5.90) Hemoglobin 5.5 GM/DL 7.2 GM/DL 7.9 GM/DL 7.6 GM/DL (13.0-17.0) (13.0-17.0) (13.0-17.0) (13.0-17.0) Hematocrit 19.3 % 23.6 % 25.8 % (39.0-51.0) (39.0-51.0) (39.0-51.0) Mean Corpuscular Volume 60.7 FL 63.8 FL 64.9 FL (80.0-100.0) (80.0-100.0) (80.0-100.0) Mean Corpuscular Hemoglobin 17.3 PG 19.5 PG 19.2 PG (27.0-34.0) (27.0-34.0) (27.0-34.0) Mean Corpuscular Hemoglobin 28.4 % 30.5 % 29.6 % Concent (32.0-36.0) (32.0-36.0) (32.0-36.0) Red Cell Distribution Width 21.1 % 24.2 % 24.2 % (11.6-17.2) (11.6-17.2) (11.6-17.2) Neutrophils (%) (Auto) 75.6 % 72.3 % 77.5 % (16.0-70.0) (16.0-70.0) (16.0-70.0) Monocytes (%) (Auto) 8.5 % (0.0-8.0) 11.4 % (0.0-8.0) Lymphocytes # (Auto) 0.8 TH/MM3 0.7 TH/MM3 0.8 TH/MM3 (1.0-4.8) (1.0-4.8) (1.0-4.8) Chloride Level 109 MEQ/L 108 MEQ/L (98-107) (98-107) Estimat Glomerular Filtration 88 ML/MIN (>89) Rate Aspartate Amino Transf 10 U/L (15-37) 8 U/L (15-37) (AST/SGOT) Iron Level 24 MCG/DL (65-175) Total Iron Binding Capacity 567 MCG/DL (250-450) Percent Iron Saturation 4.2 % (20-50) Ferritin 2 NG/ML (26-388) Albumin 3.1 GM/DL (3.4-5.0) Erythrocyte Sedimentation Rate 45 mm/hr (0-20) Imaging Last Impressions Small Bowel X-Ray 12/04/16 0000 Signed Impressions: Service Date/Time: Sunday, December 04, 2016 11:50 - CONCLUSION: Unremarkable small bowel examination. Omar Lehman MD Abdomen/Pelvis CT 12/03/16 0000 Signed Impressions: Service Date/Time: Saturday, December 03, 2016 19:52 - CONCLUSION: 1. Mild diverticulosis. 2. Mildly nonspecific, nonobstructive bowel gas pattern which could represent a mild ileus or gastroenteritis. No oral contrast was given limiting sensitivity. Mahamed Toro MD PE at Discharge GENERAL: in NAD CARDIOVASCULAR: Regular rate and rhythm without murmurs, gallops, or rubs. RESPIRATORY: Breath sounds equal bilaterally. No accessory muscle use. GASTROINTESTINAL: Abdomen soft, non-tender, nondistended. MUSCULOSKELETAL: No cyanosis, or edema. BACK: Nontender without obvious deformity. No CVA tenderness. Pt update on day of discharge f/u for anemia patient has no complaints. He is very anxious to go home. denied any blood in stools. Denied any N/V or abdominal pain. Hospital Course 51-year-old male with history of iron deficient anemia requiring transfusions, presents after routine outpatient labs at the [facility] revealed hemoglobin of 5.2 today Acute Symptomatic Blood Loss Anemia with Lower GI Bleeding: with hematochezia. patient reports symptoms of fatigue,SOB/BANEGAS,weakness. Hgb 5.5 upon arrival. Hx of EGD/colonoscopy by Dr. Kaplan showed gastritis, diverticulosis, internal and external hemorrhoids. -CT scan showed possible ileus, gastroenteritis, and diverticulosis. -s/p 2u pRBCs with appropriate post transfusion result. no GI bleed in hospital and hemoglobin has been stable. -director corporate Dr Garces consulted and work for anemia done. most likely iron deficiency anemia due to GI source. patient given IV iron while hospitalized. d /c home with oral iron and f/u with Dr. Garces. Pt Condition on Discharge: Good Discharge Disposition: Discharge Home Discharge Time: <= 30 minutes Discharge Instructions DIET: Follow Instructions for: As Tolerated, No Restrictions Activities you can perform: Regular-No Restrictions Follow up Referrals: Oncology with Dr. Garces New Medications: Ferrous Sulfate DR (Ferrous Sulfate DR) 324 Mg Tabdr 324 MG PO BID Nutritional Supplement #60 Ref 0 TAB Continued Medications: Pantoprazole (Protonix) 40 Mg Tab 40 MG PO DAILY Reflux #30 Ref 0 TAB Discontinued Medications: Ferrous Fumarate (Iron) 18 Mg Tab MG PO BID Ref 0 TAB Naomy Paige MD Dec 05, 2016 11:39
[2016-12-07 23:52] LABS: IGA SERUM 245 mg/dL (81-463); TISSUE TRANSGLUTAMINASE AB IGG ND U/mL (())
[2016-12-08 03:52] LABS: ENDOMYSIAL AB TITER ND (<1:5); TISSUE TRANSGLUTAMINASE AB LESS THAN 1 U/mL (())
== END 2016-12-05 13:17 | disposition home or self-care (01) | DRG 378 ==
LOC: NEPC 16:25 → NEDA 17:45 → HOCB 20:25 → HIME 12-04 12:49 → HOCB 12-04 12:52
PROVIDERS: ADMIT Family Medicine; ATTEND Family Medicine
PROC: 30233N1 Transfusion of Nonautologous Red Blood Cells into Peripheral Vein, Percutaneous Approach (ICD-10-PCS; principal; 2016-12-03)
DX: K92.2 Gastrointestinal hemorrhage, unspecified (principal); D62 Acute posthemorrhagic anemia; I10 Essential (primary) hypertension; F43.10 Post-traumatic stress disorder, unspecified; K64.4 Residual hemorrhoidal skin tags; K64.8 Other hemorrhoids; K57.90 Diverticulosis of intestine, part unspecified, without perforation or abscess without bleeding; K29.70 Gastritis, unspecified, without bleeding; J45.909 Unspecified asthma, uncomplicated; Z83.3 Family history of diabetes mellitus; Z82.49 Family history of ischemic heart disease and other diseases of the circulatory system; K21.9 Gastro-esophageal reflux disease without esophagitis; Z86.010 Personal history of colon polyps; R53.1 Weakness; R20.2 Paresthesia of skin
CPT/HCPCS: 36430; 74177; 74250; 80053; 82728; 82784; 83516; 83540; 83550; 85018; 85025; 85610; 85652; 85730; 86850; 86900; 86901; 86920; 96374; C9113; J1756; J7050; P9016; Q9963; Q9967